=== PATIENT | male | born 1985 | race Caucasian/White ===

== ENCOUNTER 2017-03-25 21:34 | Emergency (ER) | payer BC, MEDICAID ==
[2017-03-25] MEDS ORDERED: Lidocaine 1% 30 ML SDV INJECT ONE (21:48)
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
[2017-03-25] MEDS ORDERED: Diphtheria,Pertussis(Acell),Tetanus Vaccine 0.5 ML SDV IM ONE (22:01)
[2017-03-25 22:43] VITALS: BP 144/80
== END 2017-03-25 22:47 | disposition home or self-care (01) ==
LOC: DL.ED 21:34
DX: S01.511A Laceration without foreign body of lip, initial encounter (principal); S00.83XA Contusion of other part of head, initial encounter; M25.512 Pain in left shoulder; F17.210 Nicotine dependence, cigarettes, uncomplicated; Z23 Encounter for immunization; Z88.1 Allergy status to other antibiotic agents; Y04.0XXA Assault by unarmed brawl or fight, initial encounter
CPT/HCPCS: 12011; 73030-LT; 90471; 90715; 99283

== ENCOUNTER 2018-12-27 21:49 | Emergency (ER) | payer BC ==
[2018-12-27 22:08] VITALS: BP 136/90
[2018-12-27] MEDS ORDERED: Sodium Chloride 0.9% 10 ML Syringe FLUSH PRN (22:09)
[2018-12-27 22:38] LABS: ANION GAP 13.2; CHLORIDE,CL 105 mmol/L (101-111); SODIUM,NA 137 mmol/L (135-145)
[2018-12-27] MEDS ORDERED: Sodium Chloride 0.9% 1,000 ML IV ONE (22:44)
[2018-12-27] MEDS ORDERED: Lactated Ringers 1,000 ML IV ONE (23:29)
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
== END 2018-12-28 00:17 | disposition home or self-care (01) ==
LOC: DL.ED 21:49
DX: K52.9 Noninfective gastroenteritis and colitis, unspecified (principal); E86.0 Dehydration; F17.210 Nicotine dependence, cigarettes, uncomplicated; Z98.890 Other specified postprocedural states; Z88.8 Allergy status to other drugs, medicaments and biological substances
CPT/HCPCS: 36415; 80053; 85025; 96360; 99283; J7030; J7120

== ENCOUNTER 2019-12-02 12:40 | Observation (INO) | payer OTHER ==
[2019-12-02] MEDS ORDERED: Sodium Chloride 0.9% 10 ML Syringe FLUSH PRN (12:54)
[2019-12-02] MEDS ORDERED: Lactated Ringers 1,000 ML IV ONE (12:55)
--- NOTE | 2019-12-02 13:04 | EDM.PDOC ---
ED HPI GENERAL MEDICAL PROBLEM - General Chief Complaint: Exposure to Heat or Cold Stated Complaint: UNKNOWN Time Seen by Provider: 12/02/19 12:55 Source of Information: Reports: Patient, EMS, Old Records, RN, RN Notes Reviewed History Limitations: Reports: No Limitations - History of Present Illness INITIAL COMMENTS - FREE TEXT/NARRATIVE: Pt [facility] with c/o being cold from being outside all night , with a bare right foot (lost his shoe) and laid on the cold ground for hours ( overnight temperatures in high 20's F. Pt states his feet and toes are painful and feel as if his has vera bite. He admits to relapsing to Methamphetamine use about 4 days ago after eight months of being clean and sober. Pt admits to both meth and marijuana use. He states that he was outside on the run from police all night. However, the police in that area report that they did not have any such abbie, and in fact were unaware of the pt's situation. The pt gives a detailed story of the events of the last 2 days, but it appears that much of what he reports may be related more to Methamphetamine related hallucinations that to reality. Onset: Unknown/Unsure Onset Date: 12/01/19 Duration: Constant Location: Reports: Lower Extremity, Left, Lower Extremity, Right, Generalized Quality: Reports: Ache Severity: Moderate Improves with: Reports: Heat Therapy Worsens with: Reports: None Context: Reports: Other (Cold exposure, substance abuse.) Associated Symptoms: Reports: No Other Symptoms Bilateral Leg Pain Score (Numeric/FACES): 8 - Related Data Allergies Allergy/AdvReac Type Severity Reaction Status Date / Time doxycycline Allergy Unknown Cannot Verified 12/02/19 12:53 Remember Home Meds: Home Meds Ibuprofen [Ibuprofen Ib] 800 mg PO ASDIRECTED PRN 05/04/18 [History] Past Medical History - Past Health History Medical/Surgical History: Denies Medical/Surgical History HEENT History: Reports: Other (See Below) Other HEENT History: dental problems Cardiovascular History: Reports: None Respiratory History: Reports: None Gastrointestinal History: Reports: None Genitourinary History: Reports: None Musculoskeletal History: Reports: None Other Musculoskeletal History: hands fx Neurological History: Reports: None Psychiatric History: Reports: Addiction Endocrine/Metabolic History: Reports: None Hematologic History: Reports: None Immunologic History: Reports: None Oncologic (Cancer) History: Reports: None Dermatologic History: Reports: None - Infectious Disease History Infectious Disease History: Reports: MRSA - Past Surgical History HEENT Surgical History: Reports: Adenoidectomy, Eye Surgery Cardiovascular Surgical History: Reports: None Respiratory Surgical History: Reports: None GI Surgical History: Reports: None Male Surgical History: Reports: None Endocrine Surgical History: Reports: None Neurological Surgical History: Reports: None Musculoskeletal Surgical History: Reports: None Oncologic Surgical History: Reports: None Social & Family History - Family History Family Medical History: Noncontributory - Tobacco Use Smoking Status *Q: Heavy Tobacco Smoker Years of Tobacco use: 22 Packs/Tins Daily: 1 - Caffeine Use Caffeine Use: Reports: Coffee Other Caffeine Use: 2 energy drinks/ day and 2 cups coffee /day - Recreational Drug Use Recreational Drug Use: Yes Drug Use in Last 12 Months: Yes Recreational Drug Type: Reports: Marijuana/Hashish, Methamphetamine - Living Situation & Occupation Living situation: Reports: Occupation: Employed ED ROS GENERAL - Review of Systems Review Of Systems: Comprehensive ROS is negative, except as noted in HPI. ED EXAM, GENERAL - Physical Exam Exam: See Below Exam Limited By: No Limitations General Appearance: Alert, WD/WN, No Apparent Distress, Other (Unkept appearance ) Eye Exam: Bilateral Eye: EOMI, Nystagmus (Lateral gaze), PERRL Ears: Normal External Exam, Hearing Grossly Normal Nose: Normal Inspection, Normal Mucosa, No Blood Throat/Mouth: Normal Voice, No Airway Compromise, Other (Dry oral mucosa. Chronic dental decay.) Head: Atraumatic, Normocephalic Neck: Normal Inspection, Supple, Non-Tender, Full Range of Motion. No: Lymphadenopathy (L), Lymphadenopathy (R) Respiratory/Chest: No Respiratory Distress, Lungs Clear, Normal Breath Sounds, No Accessory Muscle Use, Chest Non-Tender Cardiovascular: Normal Peripheral Pulses, Regular Rate, Rhythm GI/Abdominal: Normal Bowel Sounds, Soft, Non-Tender, No Organomegaly, No Distention, No Abnormal Bruit, No Mass Back Exam: Normal Inspection, Full Range of Motion. No: CVA Tenderness (L), CVA Tenderness (R) Extremities: Normal Range of Motion, No Pedal Edema, Normal Capillary Refill ( at distal fingers), Slow Capillary Refill (at distal toes), Other (Laceration at plantar right 3rd toe overlying the MTPJ, not repaired due to vera bite of the area.). No: Joint Swelling Neurological: Alert, Oriented, CN II-XII Intact, Normal Cognition, No Motor/ Sensory Deficits Psychiatric: Normal Mood Skin Exam: Dry, No Rash, Cool (Feet/toes/lower legs), Other (Skin of left foot is red, and tender after passive dry warming, no bulla or blister, skin is intact. Right foot is more tender than the left, with 7cm of purplish discoloration from the 5th toe along the later side of the foot. Right toe pads 1-5 also with purplish discoloration, and a band of purlpe skin across the plantar forefoot 15cm x 4cm. No blistering, white/sprague skin, sloughing, or bulla to the right foot. ). No: Cyanosis, Ecchymosis, Erythema, Jaundice, Petechiae Course - Vital Signs Last Recorded V/S: Last Vital Signs Temp 98.5 F 12/02/19 12:54 Pulse 98 12/02/19 12:54 Resp 16 12/02/19 12:54 BP 114/67 12/02/19 12:54 Pulse Ox 100 12/02/19 12:54 - Orders/Labs/Meds Orders: Active Orders 24 hr Category Date Time Status Blood Glucose Check, Bedside [RC] ONETIME Care 12/02/19 12:54 Active Blood Glucose Check, Bedside [RC] ONETIME Care 12/02/19 14:48 Ordered Peripheral IV Care [RC] . DIRECTED Care 12/02/19 12:54 Active Dextrose 5%-0.45% NaCl [Dextrose 5%-1/2 NS] 1,000 ml Med 12/02/19 14:15 Active IV ASDIRECTED Sodium Chloride 0.9% [Saline Flush] Med 12/02/19 12:54 Active 10 ml FLUSH ASDIRECTED PRN Peripheral IV Insertion Adult [OM.PC] Stat Oth 12/02/19 12:54 Ordered Medication Orders Dextrose/Sodium Chloride (Dextrose 5%-1/2 Ns) 1,000 mls @ 150 mls/hr IV ASDIRECTED [place] Last Admin: 12/02/19 14:14 Dose: 150 mls/hr Sodium Chloride (Saline Flush) 10 ml FLUSH ASDIRECTED PRN PRN Reason: Keep Vein Open Last Admin: 12/02/19 13:03 Dose: 10 ml Labs: Laboratory Tests 12/02/19 12/02/19 12/02/19 Range/Units 12:55 12:55 12:55 WBC 15.2 H (5.0-10.0) 10^3/uL RBC 5.56 (4.6-6.2) 10^6/uL Hgb 16.9 D (14.0-18.0) g/dL Hct 47.7 (40.0-54.0) % MCV 85.8 D (80-100) fL MCH 30.4 (27.0-34.0) pg MCHC 35.4 H (33.0-35.0) g/dL Plt Count 284 (150-450) 10^3/uL Neut % (Auto) 75.4 H (42.2-75.2) % Lymph % (Auto) 14.8 L (20.5-50.1) % [place] % (Auto) 9.4 H (2-8) % Eos % (Auto) 0.1 L (1.0-3.0) % Baso % (Auto) 0.3 (0.0-1.0) % Sodium 139 (136-145) mmol/L Potassium 4.0 (3.5-5.1) mmol/L Chloride 99 (98-107) mmol/L Carbon Dioxide 21 (21-32) mmol/L Anion Gap 23.0 H (7-13) mEq/L BUN 38 H (7-18) mg/dL Creatinine 1.24 (0.70-1.30) mg/dL Est Cr Clr Drug Dosing 82.36 mL/min Estimated GFR (MDRD) > 60 BUN/Creatinine Ratio 30.6 (No establ ref range) Glucose 73 L (74-99) mg/dL POC Glucose (70-105) mg/dl Lactic Acid 1.0 (0.4-2.0) mmol/L Calcium 9.1 (8.5-10.1) mg/dL Magnesium 2.2 (1.8-2.4) mg/dL Total Bilirubin 1.6 H (0.2-1.0) mg/dL AST 146 H (15-37) U/L ALT 71 H (16-63) U/L Alkaline Phosphatase 106 (46-116) U/L Creatine Kinase > 1000 H (39-308) U/L C-Reactive Protein 2.7 H (0.0-0.9) mg/dL Total Protein 8.1 (6.4-8.2) g/dL Albumin 4.7 (3.4-5.0) g/dL Globulin 3.4 Albumin/Globulin Ratio 1.4 Urine Color (YELLOW) Urine Appearance (CLEAR) Urine pH (5.0-9.0) Ur Specific [place] (1.005-1.030) Urine Protein (NEGATIVE) Urine Glucose (UA) (NEGATIVE) Urine Ketones (NEGATIVE) Urine Occult Blood (NEGATIVE) Urine Nitrite (NEGATIVE) Urine Bilirubin (NEGATIVE) Urine Urobilinogen (0.2-1.0) mg/dL Ur Leukocyte Esterase (NEGATIVE) U Hyaline Cast (Auto) Urine RBC /HPF Urine WBC (0-5/HPF) /HPF Ur Epithelial Cells (NOT SEEN) /HPF Amorphous Sediment (NOT SEEN) /HPF Urine Bacteria (0-FEW/HPF) /HPF Fine Granular Casts (NOT SEEN) /LPF Urine Mucus (NOT SEEN) /LPF Urine Opiates Screen (NEGATIVE) Ur Oxycodone Screen (NEGATIVE) Urine Methadone Screen (NEGATIVE) Ur Barbiturates Screen (NEGATIVE) U Tricyclic Antidepress (NEGATIVE) Ur Phencyclidine Scrn (NEGATIVE) Ur Amphetamine Screen (NEGATIVE) U Methamphetamines Scrn (NEGATIVE) Urine MDMA Screen (NEGATIVE) U Benzodiazepines Scrn (NEGATIVE) Urine Cocaine Screen (NEGATIVE) U Marijuana (THC) Screen (NEGATIVE) Ethyl Alcohol < 3 (0) mg/dL 12/02/19 12/02/19 12/02/19 Range/Units 13:03 14:04 14:04 WBC (5.0-10.0) 10^3/uL RBC (4.6-6.2) 10^6/uL Hgb (14.0-18.0) g/dL Hct (40.0-54.0) % MCV (80-100) fL MCH (27.0-34.0) pg MCHC (33.0-35.0) g/dL Plt Count (150-450) 10^3/uL Neut % (Auto) (42.2-75.2) % Lymph % (Auto) (20.5-50.1) % [place] % (Auto) (2-8) % Eos % (Auto) (1.0-3.0) % Baso % (Auto) (0.0-1.0) % Sodium (136-145) mmol/L Potassium (3.5-5.1) mmol/L Chloride (98-107) mmol/L Carbon Dioxide (21-32) mmol/L Anion Gap (7-13) mEq/L BUN (7-18) mg/dL Creatinine (0.70-1.30) mg/dL Est Cr Clr Drug Dosing mL/min Estimated GFR (MDRD) BUN/Creatinine Ratio (No establ ref range) Glucose (74-99) mg/dL POC Glucose 64 L (70-105) mg/dl Lactic Acid (0.4-2.0) mmol/L Calcium (8.5-10.1) mg/dL Magnesium (1.8-2.4) mg/dL Total Bilirubin (0.2-1.0) mg/dL AST (15-37) U/L ALT (16-63) U/L Alkaline Phosphatase (46-116) U/L Creatine Kinase (39-308) U/L C-Reactive Protein (0.0-0.9) mg/dL Total Protein (6.4-8.2) g/dL Albumin (3.4-5.0) g/dL Globulin Albumin/Globulin Ratio Urine Color Dark yellow (YELLOW) Urine Appearance Slightly cloudy (CLEAR) Urine pH 5.5 (5.0-9.0) Ur Specific [place] >= 1.030 (1.005-1.030) Urine Protein 100 H (NEGATIVE) Urine Glucose (UA) Negative (NEGATIVE) Urine Ketones >=160 H (NEGATIVE) Urine Occult Blood Moderate H (NEGATIVE) Urine Nitrite Negative (NEGATIVE) Urine Bilirubin Small H (NEGATIVE) Urine Urobilinogen 0.2 (0.2-1.0) mg/dL Ur Leukocyte Esterase Negative (NEGATIVE) U Hyaline Cast (Auto) Few Urine RBC 0-5 /HPF Urine WBC 0-5 (0-5/HPF) /HPF Ur Epithelial Cells Rare (NOT SEEN) /HPF Amorphous Sediment Few (NOT SEEN) /HPF Urine Bacteria Few (0-FEW/HPF) /HPF Fine Granular Casts Few H (NOT SEEN) /LPF Urine Mucus Few H (NOT SEEN) /LPF Urine Opiates Screen Negative (NEGATIVE) Ur Oxycodone Screen Negative (NEGATIVE) Urine Methadone Screen Negative (NEGATIVE) Ur Barbiturates Screen Negative (NEGATIVE) U Tricyclic Antidepress Negative (NEGATIVE) Ur Phencyclidine Scrn Negative (NEGATIVE) Ur Amphetamine Screen Positive H (NEGATIVE) U Methamphetamines Scrn Positive H (NEGATIVE) Urine MDMA Screen Positive H (NEGATIVE) U Benzodiazepines Scrn Negative (NEGATIVE) Urine Cocaine Screen Negative (NEGATIVE) U Marijuana (THC) Screen Positive H (NEGATIVE) Ethyl Alcohol (0) mg/dL CPK reported >7000 [address]. Meds: Medications Generic Name Dose Route Start Last Admin Trade Name Freq PRN Reason Stop Dose Admin Dextrose/Sodium Chloride 1,000 mls @ 150 mls/hr 12/02/19 14:15 12/02/19 14:14 Dextrose 5%-1/2 Ns IV 150 mls/hr ASDIRECTED [place] Administration Sodium Chloride 10 ml 12/02/19 12:54 12/02/19 13:03 Saline Flush FLUSH 10 ml ASDIRECTED PRN Administration Keep Vein Open Discontinued Medications Generic Name Dose Route Start Last Admin Trade Name Freq PRN Reason Stop Dose Admin Fentanyl 50 mcg 12/02/19 14:04 12/02/19 14:16 Sublimaze IVPUSH 12/02/19 14:05 50 mcg ONETIME ONE Administration Lactated Ringer's 1,000 mls @ 999 mls/hr 12/02/19 12:55 12/02/19 13:03 Ringers, Lactated IV 12/02/19 13:55 999 mls/hr .BOLUS ONE Administration Ketorolac Tromethamine 30 mg 12/02/19 14:04 12/02/19 14:15 Toradol IVPUSH 12/02/19 14:05 30 mg ONETIME ONE Administration Ondansetron HCl 4 mg 12/02/19 14:05 12/02/19 14:15 Zofran IV 12/02/19 14:06 4 mg ONETIME ONE Administration - Re-Assessments/Exams Free Text/Narrative Re-Assessment/Exam: 12/02/19 15:01 Dr. Mariella Blake (public health informatician) consulted for frostbite, and agrees to consult if pt is admitted. Departure - Departure Time of Disposition: 14:58 (pt admitted to Dr. KwakDr. Mariella gambino to consult for podiatry.) Disposition: Refer to Observation Condition: Fair Clinical Impression: Dehydration, Methamphetamine abuse, MDMA abuse, Marijuana abuse Rhabdomyolysis Qualifiers: Rhabdomyolysis type: non-traumatic Qualified Code(s): M62.82 - Rhabdomyolysis Frostbite of feet, bilateral Qualifiers: Encounter type: initial encounter Qualified Code(s): T33.821A - Superficial frostbite of right foot, initial encounter; T33.822A - Superficial frostbite of left foot, initial encounter Hypothermia Qualifiers: Encounter type: initial encounter Qualified Code(s): T68.XXXA - Hypothermia, initial encounter - Discharge Information *PRESCRIPTION DRUG MONITORING PROGRAM REVIEWED*: No *COPY OF PRESCRIPTION DRUG MONITORING REPORT IN PATIENT ALTAGRACIA: No Forms: ED Department Discharge Sepsis Event Note - Evaluation Sepsis Screening Result: No Definite Risk - Focused Exam Vital Signs: Vital Signs Temp Pulse Resp BP Pulse Ox 12/02/19 12:54 98.5 F 98 16 114/67 100 Date Exam was Performed: 12/02/19 Time Exam was Performed: 14:56 - My Orders Last 24 Hours: My Active Orders 12/02/19 12:54 Blood Glucose Check, Bedside [RC] ONETIME Peripheral IV Care [RC] . DIRECTED Sodium Chloride 0.9% [Saline Flush] 10 ml FLUSH ASDIRECTED PRN Peripheral IV Insertion Adult [OM.PC] Stat 12/02/19 14:15 Dextrose 5%-0.45% NaCl [Dextrose 5%-1/2 NS] 1,000 ml IV ASDIRECTED 12/02/19 14:48 Blood Glucose Check, Bedside [RC] ONETIME - Assessment/Plan Last 24 Hours: My Active Orders 12/02/19 12:54 Blood Glucose Check, Bedside [RC] ONETIME Peripheral IV Care [RC] . DIRECTED Sodium Chloride 0.9% [Saline Flush] 10 ml FLUSH ASDIRECTED PRN Peripheral IV Insertion Adult [OM.PC] Stat 12/02/19 14:15 Dextrose 5%-0.45% NaCl [Dextrose 5%-1/2 NS] 1,000 ml IV ASDIRECTED 12/02/19 14:48 Blood Glucose Check, Bedside [RC] ONETIME
[2019-12-02 13:40] LABS: CHLORIDE,CL 99 mmol/L (98-107); SODIUM,NA 139 mmol/L (136-145)
[2019-12-02] MEDS ORDERED: Ketorolac 30 MG/ML SDV IVPUSH ONE (14:04)
[2019-12-02] MEDS ORDERED: fentaNYL 100 MCG/2 ML SDV IVPUSH ONE (14:04)
[2019-12-02] MEDS ORDERED: Ondansetron 4 MG/2 ML SDV IV ONE (14:05)
[2019-12-02] MEDS ORDERED: Dextrose 5%-0.45% NaCl 1,000 ML IV SCH (14:15)
[2019-12-02] MEDS ORDERED: Docusate Sodium 100 MG Cap PO PRN (15:27)
[2019-12-02] MEDS ORDERED: Magnesium Hydroxide 400 MG/5 ML Susp 30 ML Cup PO PRN (15:27)
[2019-12-02] MEDS ORDERED: Ondansetron 4 MG Tab.DIS PO PRN (15:27)
[2019-12-02] MEDS ORDERED: Acetaminophen 325 MG Tab PO PRN (15:27)
--- NOTE | 2019-12-02 15:56 | PCM.HP ---
H&P History of Present Illness - General Date of Service: 12/02/19 Admit Problem/Dx: Admission Diagnosis/Problem Admission Diagnosis/Problem Frostbite/Rhabdomyolysis Source of Information: Patient History Limitations: Reports: No Limitations - History of Present Illness Initial Comments - Free Text/Narative: Shady is34 y/o M with PMH of substance abuse. Patient's uses methamphetamine but apparently has been in remission for the past 8 months. He relapsed 3 days ago. Patient was brought to the ED for evaluation of hallucination and frostbite to the left toe. He was brought to the ED via EMS complaining of feeling cold. Patient said he was lying outside on the ground all night for about 12 hours. He lost his shoes and he laid down on the cold ground for about 12 hours. According to patient he was chased out of his home by the police and ended up somewhat dehydrated and could not help himself up. This morning he was having pain all over his body and feeling cold. So he crawled about [address] where he could seek help. EMS was activated and he was brought to the ED. Patient's history appears to be inconsistent. He denies passing out. He has no chest pain, shortness of breath, fever, chills. No headaches. He only reports pain all over the body and feeling weak and tired and dehydrated. He admits using methamphetamine and marijuana. He reports pain and purple discoloration to the right foot. In the ED vitals were unremarkable. Significant labs; WBC 15 K, creatinine greater than thousand. Utox positive for marijuana and methamphetamine. Other labs essentially unremarkable. He was started on IV fluids. As per the ED vitals, Dr. Rahman he consulted supervisor agricultural education who promised to see patient today. Onset of Symptoms: Reports: Gradual Duration of Symptoms: Reports: Hour(s):, Day(s): Location: Reports: Lower Extremity, Right, Generalized Quality: Reports: Ache Severity: Moderate Improves with: Reports: None Worsens with: Reports: None Associated Symptoms: Reports: Weakness Bilateral Leg Pain Score (Numeric/FACES): 8 - Related Data Allergies/Adverse Reactions: Allergies Allergy/AdvReac Type Severity Reaction Status Date / Time doxycycline Allergy Unknown Cannot Verified 12/02/19 15:40 Remember Home Medications: Home Meds Ibuprofen [Ibuprofen Ib] 800 mg PO ASDIRECTED PRN 05/04/18 [History] Past Medical History - Past Health History Medical/Surgical History: Denies Medical/Surgical History HEENT History: Reports: Other (See Below) Other HEENT History: dental problems Cardiovascular History: Reports: None Respiratory History: Reports: None Gastrointestinal History: Reports: None Genitourinary History: Reports: None Musculoskeletal History: Reports: None Other Musculoskeletal History: hands fx Neurological History: Reports: None Psychiatric History: Reports: Addiction Endocrine/Metabolic History: Reports: None Hematologic History: Reports: None Immunologic History: Reports: None Oncologic (Cancer) History: Reports: None Dermatologic History: Reports: None - Infectious Disease History Infectious Disease History: Reports: MRSA - Past Surgical History HEENT Surgical History: Reports: Adenoidectomy, Eye Surgery Cardiovascular Surgical History: Reports: None Respiratory Surgical History: Reports: None GI Surgical History: Reports: None Male Surgical History: Reports: None Endocrine Surgical History: Reports: None Neurological Surgical History: Reports: None Musculoskeletal Surgical History: Reports: None Oncologic Surgical History: Reports: None Social & Family History - Family History Family Medical History: Noncontributory - Tobacco Use Smoking Status *Q: Heavy Tobacco Smoker Years of Tobacco use: 22 Packs/Tins Daily: 1 - Caffeine Use Caffeine Use: Reports: Coffee Other Caffeine Use: 2 energy drinks/ day and 2 cups coffee /day - Recreational Drug Use Recreational Drug Use: Yes Drug Use in Last 12 Months: Yes Recreational Drug Type: Reports: Marijuana/Hashish, Methamphetamine - Living Situation & Occupation Living situation: Reports: Occupation: Employed H&P Review of Systems - Review of Systems: Review Of Systems: See Below General: Reports: Weakness HEENT: Reports: No Symptoms Pulmonary: Reports: No Symptoms Cardiovascular: Reports: No Symptoms Gastrointestinal: Reports: No Symptoms Genitourinary: Reports: No Symptoms Musculoskeletal: Reports: Muscle Pain Skin: Reports: No Symptoms Psychiatric: Reports: No Symptoms Neurological: Reports: No Symptoms Hematologic/Lymphatic: Reports: No Symptoms Immunologic: Reports: No Symptoms (right foot pain and discoloration) Exam - Exam Exam: See Below - Vital Signs Vital Signs: Last Vital Signs Temp 98.5 F 12/02/19 12:54 Pulse 98 12/02/19 12:54 Resp 16 12/02/19 12:54 BP 114/67 12/02/19 12:54 Pulse Ox 100 12/02/19 12:54 Weight: 209 lb 3 oz - Exam General: Alert, Oriented, 4 HEENT: PERRLA, Hearing Intact, Mucosa Moist & Robbins, Nares Patent, Normal Nasal Septum, Posterior Pharynx Clear, Conjunctiva Clear, EOMI, EACs Clear, TMs Clear Neck: Supple, Trachea Midline, 2 Lungs: Clear to Auscultation, Normal Respiratory Effort Cardiovascular: Regular Rate, Regular Rhythm GI/Abdominal Exam: Normal Bowel Sounds, Soft, Non-Tender, No Organomegaly, No Distention, No Abnormal Bruit, No Mass, Pelvis Stable (Male) Exam: No Hernia, Normal Inspection, Normal Prostate, Circumcised Rectal (Males) Exam: Normal Exam, Normal Rectal Tone, Prostate Normal Back Exam: Normal Inspection, Full Range of Motion, NT Extremities: Normal Range of Motion, No Pedal Edema, Normal Capillary Refill, Other (Pulple discoloration to right toes) Skin: Warm, Dry, Intact Neurological: Cranial Nerves Intact, Reflexes Equal Bilateral Neuro Extensive - Mental Status: Alert, Oriented x3, Normal Mood/Affect, Normal Cognition Neuro Extensive - Motor, Sensory, Reflexes: CN II-XII Intact, Normal Gait, Normal Reflexes Psychiatric: Alert, Normal Affect, Normal Mood - Patient Data Lab Results Last 24 hrs: Laboratory Results - last 24 hr 12/02/19 12/02/19 12/02/19 Range/Units 12:55 12:55 12:55 WBC 15.2 H (5.0-10.0) 10^3/uL RBC 5.56 (4.6-6.2) 10^6/uL Hgb 16.9 D (14.0-18.0) g/dL Hct 47.7 (40.0-54.0) % MCV 85.8 D (80-100) fL MCH 30.4 (27.0-34.0) pg MCHC 35.4 H (33.0-35.0) g/dL Plt Count 284 (150-450) 10^3/uL Neut % (Auto) 75.4 H (42.2-75.2) % Lymph % (Auto) 14.8 L (20.5-50.1) % [place] % (Auto) 9.4 H (2-8) % Eos % (Auto) 0.1 L (1.0-3.0) % Baso % (Auto) 0.3 (0.0-1.0) % Sodium 139 (136-145) mmol/L Potassium 4.0 (3.5-5.1) mmol/L Chloride 99 (98-107) mmol/L Carbon Dioxide 21 (21-32) mmol/L Anion Gap 23.0 H (7-13) mEq/L BUN 38 H (7-18) mg/dL Creatinine 1.24 (0.70-1.30) mg/dL Est Cr Clr Drug Dosing 82.36 mL/min Estimated GFR (MDRD) > 60 BUN/Creatinine Ratio 30.6 (No establ ref range) Glucose 73 L (74-99) mg/dL POC Glucose (70-105) mg/dl Lactic Acid 1.0 (0.4-2.0) mmol/L Calcium 9.1 (8.5-10.1) mg/dL Magnesium 2.2 (1.8-2.4) mg/dL Total Bilirubin 1.6 H (0.2-1.0) mg/dL AST 146 H (15-37) U/L ALT 71 H (16-63) U/L Alkaline Phosphatase 106 (46-116) U/L Creatine Kinase > 1000 H (39-308) U/L C-Reactive Protein 2.7 H (0.0-0.9) mg/dL Total Protein 8.1 (6.4-8.2) g/dL Albumin 4.7 (3.4-5.0) g/dL Globulin 3.4 Albumin/Globulin Ratio 1.4 Urine Color (YELLOW) Urine Appearance (CLEAR) Urine pH (5.0-9.0) Ur Specific [place] (1.005-1.030) Urine Protein (NEGATIVE) Urine Glucose (UA) (NEGATIVE) Urine Ketones (NEGATIVE) Urine Occult Blood (NEGATIVE) Urine Nitrite (NEGATIVE) Urine Bilirubin (NEGATIVE) Urine Urobilinogen (0.2-1.0) mg/dL Ur Leukocyte Esterase (NEGATIVE) U Hyaline Cast (Auto) Urine RBC /HPF Urine WBC (0-5/HPF) /HPF Ur Epithelial Cells (NOT SEEN) /HPF Amorphous Sediment (NOT SEEN) /HPF Urine Bacteria (0-FEW/HPF) /HPF Fine Granular Casts (NOT SEEN) /LPF Urine Mucus (NOT SEEN) /LPF Urine Opiates Screen (NEGATIVE) Ur Oxycodone Screen (NEGATIVE) Urine Methadone Screen (NEGATIVE) Ur Barbiturates Screen (NEGATIVE) U Tricyclic Antidepress (NEGATIVE) Ur Phencyclidine Scrn (NEGATIVE) Ur Amphetamine Screen (NEGATIVE) U Methamphetamines Scrn (NEGATIVE) Urine MDMA Screen (NEGATIVE) U Benzodiazepines Scrn (NEGATIVE) Urine Cocaine Screen (NEGATIVE) U Marijuana (THC) Screen (NEGATIVE) Ethyl Alcohol < 3 (0) mg/dL 12/02/19 12/02/19 12/02/19 Range/Units 13:03 14:04 14:04 WBC (5.0-10.0) 10^3/uL RBC (4.6-6.2) 10^6/uL Hgb (14.0-18.0) g/dL Hct (40.0-54.0) % MCV (80-100) fL MCH (27.0-34.0) pg MCHC (33.0-35.0) g/dL Plt Count (150-450) 10^3/uL Neut % (Auto) (42.2-75.2) % Lymph % (Auto) (20.5-50.1) % [place] % (Auto) (2-8) % Eos % (Auto) (1.0-3.0) % Baso % (Auto) (0.0-1.0) % Sodium (136-145) mmol/L Potassium (3.5-5.1) mmol/L Chloride (98-107) mmol/L Carbon Dioxide (21-32) mmol/L Anion Gap (7-13) mEq/L BUN (7-18) mg/dL Creatinine (0.70-1.30) mg/dL Est Cr Clr Drug Dosing mL/min Estimated GFR (MDRD) BUN/Creatinine Ratio (No establ ref range) Glucose (74-99) mg/dL POC Glucose 64 L (70-105) mg/dl Lactic Acid (0.4-2.0) mmol/L Calcium (8.5-10.1) mg/dL Magnesium (1.8-2.4) mg/dL Total Bilirubin (0.2-1.0) mg/dL AST (15-37) U/L ALT (16-63) U/L Alkaline Phosphatase (46-116) U/L Creatine Kinase (39-308) U/L C-Reactive Protein (0.0-0.9) mg/dL Total Protein (6.4-8.2) g/dL Albumin (3.4-5.0) g/dL Globulin Albumin/Globulin Ratio Urine Color Dark yellow (YELLOW) Urine Appearance Slightly cloudy (CLEAR) Urine pH 5.5 (5.0-9.0) Ur Specific [place] >= 1.030 (1.005-1.030) Urine Protein 100 H (NEGATIVE) Urine Glucose (UA) Negative (NEGATIVE) Urine Ketones >=160 H (NEGATIVE) Urine Occult Blood Moderate H (NEGATIVE) Urine Nitrite Negative (NEGATIVE) Urine Bilirubin Small H (NEGATIVE) Urine Urobilinogen 0.2 (0.2-1.0) mg/dL Ur Leukocyte Esterase Negative (NEGATIVE) U Hyaline Cast (Auto) Few Urine RBC 0-5 /HPF Urine WBC 0-5 (0-5/HPF) /HPF Ur Epithelial Cells Rare (NOT SEEN) /HPF Amorphous Sediment Few (NOT SEEN) /HPF Urine Bacteria Few (0-FEW/HPF) /HPF Fine Granular Casts Few H (NOT SEEN) /LPF Urine Mucus Few H (NOT SEEN) /LPF Urine Opiates Screen Negative (NEGATIVE) Ur Oxycodone Screen Negative (NEGATIVE) Urine Methadone Screen Negative (NEGATIVE) Ur Barbiturates Screen Negative (NEGATIVE) U Tricyclic Antidepress Negative (NEGATIVE) Ur Phencyclidine Scrn Negative (NEGATIVE) Ur Amphetamine Screen Positive H (NEGATIVE) U Methamphetamines Scrn Positive H (NEGATIVE) Urine MDMA Screen Positive H (NEGATIVE) U Benzodiazepines Scrn Negative (NEGATIVE) Urine Cocaine Screen Negative (NEGATIVE) U Marijuana (THC) Screen Positive H (NEGATIVE) Ethyl Alcohol (0) mg/dL Result Diagrams: 12/02/19 12:55 12/02/19 12:55 - Problem List (1) Dehydration SNOMED Code(s): 66944027 ICD Code: E86.0 - DEHYDRATION Status: Acute Current Visit: Yes (2) Marijuana abuse SNOMED Code(s): 77132470 ICD Code: F12.10 - CANNABIS ABUSE, UNCOMPLICATED Status: Acute Current Visit: No (3) Methamphetamine abuse SNOMED Code(s): 160639216 ICD Code: F15.10 - OTHER STIMULANT ABUSE, UNCOMPLICATED Status: Acute Current Visit: No (4) Rhabdomyolysis SNOMED Code(s): 537625791 ICD Code: M62.82 - RHABDOMYOLYSIS Status: Acute Current Visit: No Qualifiers: Rhabdomyolysis type: non-traumatic Qualified Code(s): M62.82 - Rhabdomyolysis (5) Leukocytosis SNOMED Code(s): 261872614, 861603153 ICD Code: D72.829 - ELEVATED WHITE BLOOD CELL COUNT, UNSPECIFIED Status: Acute Current Visit: Yes (6) Abnormal liver function SNOMED Code(s): 61841084 ICD Code: R94.5 - ABNORMAL RESULTS OF LIVER FUNCTION STUDIES Status: Acute Current Visit: Yes (7) Sepsis SNOMED Code(s): 48464814 ICD Code: A41.9 - SEPSIS, UNSPECIFIED ORGANISM Status: Acute Current Visit: Yes Problem List Initiated/Reviewed/Updated: Yes Orders Last 24hrs: Active Orders 24 hr Category Date Time Status Admission Diagnosis [ADT] Routine ADT 12/02/19 14:58 Ordered Patient Status [ADT] Routine ADT 12/02/19 14:58 Active Ambulate [RC] ASDIRECTED Care 12/02/19 15:27 Active Blood Glucose Check, Bedside [RC] ONETIME Care 12/02/19 12:54 Active Blood Glucose Check, Bedside [RC] ONETIME Care 12/02/19 14:48 Active Height and Weight [RC] DAILY Care 12/02/19 15:27 Active Intake and Output [RC] QSHIFT Care 12/02/19 15:27 Active Oxygen Therapy [RC] PRN Care 12/02/19 15:27 Active Peripheral IV Care [RC] . DIRECTED Care 12/02/19 12:54 Active VTE/DVT Education [RC] PER UNIT ROUTINE Care 12/02/19 15:27 Active Vital Signs [RC] Q4H Care 12/02/19 15:27 Active Regular Diet [DIET] Diet 12/02/19 Dinner Active BASIC METABOLIC PANEL,BMP [CHEM] DAILY Lab 12/03/19 07:00 Ordered BASIC METABOLIC PANEL,BMP [CHEM] DAILY Lab 12/04/19 07:00 Ordered BASIC METABOLIC PANEL,BMP [CHEM] DAILY Lab 12/05/19 07:00 Ordered BASIC METABOLIC PANEL,BMP [CHEM] DAILY Lab 12/06/19 07:00 Ordered CBC W/O DIFF,HEMOGRAM [HEME] DAILY Lab 12/03/19 07:00 Ordered CBC W/O DIFF,HEMOGRAM [HEME] DAILY Lab 12/04/19 07:00 Ordered CBC W/O DIFF,HEMOGRAM [HEME] DAILY Lab 12/05/19 07:00 Ordered CBC W/O DIFF,HEMOGRAM [HEME] DAILY Lab 12/06/19 07:00 Ordered CPK [CREATINE KINASE,CK] [CHEM] DAILY Lab 12/03/19 07:00 Ordered CPK [CREATINE KINASE,CK] [CHEM] DAILY Lab 12/04/19 07:00 Ordered CPK [CREATINE KINASE,CK] [CHEM] DAILY Lab 12/05/19 07:00 Ordered CPK [CREATINE KINASE,CK] [CHEM] DAILY Lab 12/06/19 07:00 Ordered MAGNESIUM [CHEM] Routine Lab 12/02/19 12:55 Received PHOSPHORUS [CHEM] DAILY Lab 12/03/19 07:00 Ordered PHOSPHORUS [CHEM] DAILY Lab 12/04/19 07:00 Ordered PHOSPHORUS [CHEM] DAILY Lab 12/05/19 07:00 Ordered PHOSPHORUS [CHEM] DAILY Lab 12/06/19 07:00 Ordered PHOSPHORUS [CHEM] Routine Lab 12/02/19 12:55 Received Acetaminophen [Tylenol] Med 12/02/19 15:27 Active 650 mg PO Q4H PRN Dextrose 5%-0.45% NaCl [Dextrose 5%-1/2 NS] 1,000 ml Med 12/02/19 14:15 Active IV ASDIRECTED Docusate Sodium [Colace] Med 12/02/19 15:27 Active 100 mg PO BID PRN Enoxaparin [Lovenox] Med 12/03/19 09:00 Active 40 mg SUBCUT DAILY Magnesium Hydroxide [Milk of Magnesia] Med 12/02/19 15:27 Active 30 ml PO Q12H PRN Ondansetron [Zofran ODT] Med 12/02/19 15:27 Active 4 mg PO Q6H PRN Sodium Chloride 0.9% [Normal Saline] 1,000 ml Med 12/02/19 15:30 Active IV ASDIRECTED Sodium Chloride 0.9% [Saline Flush] Med 12/02/19 12:54 Active 10 ml FLUSH ASDIRECTED PRN Peripheral IV Insertion Adult [OM.PC] Stat Oth 12/02/19 12:54 Ordered Resuscitation Status Routine Resus Stat 12/02/19 15:27 Ordered Medication Orders Acetaminophen (Tylenol) 650 mg PO Q4H PRN PRN Reason: Pain (Mild 1-3)/fever Docusate Sodium (Colace) 100 mg PO BID PRN PRN Reason: Constipation Enoxaparin Sodium (Lovenox) 40 mg SUBCUT DAILY [facility] Dextrose/Sodium Chloride (Dextrose 5%-1/2 Ns) 1,000 mls @ 150 mls/hr IV ASDIRECTED [facility] Last Admin: 12/02/19 14:14 Dose: 150 mls/hr Sodium Chloride (Normal Saline) 1,000 mls @ 250 mls/hr IV ASDIRECTED [facility] Magnesium Hydroxide (Milk Of Magnesia) 30 ml PO Q12H PRN PRN Reason: Constipation Ondansetron HCl (Zofran Odt) 4 mg PO Q6H PRN PRN Reason: nausea, able to take PO Sodium Chloride (Saline Flush) 10 ml FLUSH ASDIRECTED PRN PRN Reason: Keep Vein Open Last Admin: 12/02/19 13:03 Dose: 10 ml Assessment/Plan Comment:: #Rhabdomyolysis -CK greater than 1000 -Admit to medical floor -Aggressive IV hydration. Normal saline at 250 mL/hr -Check phosphorus level, magnesium level -Daily CK, phosphorus #Dehydration -IV fluids #Right toes frostbite -Peripheral pulses intact -Podiatry is consulted #Probable sepsis -IVF -IV Zosyn -Blood cx #Anion gap metabolic acidosis likely due to starvation ketosis -IVF #Abnormal LFTs -Hepatitis profile -RURUST -Monitor LFts daily #Substance abuse(marijuana, methamphetamine) -U tox positive for marijuana and methamphetamine -Counseled to quit
[2019-12-02] MEDS ORDERED: LORazepam 2 MG/ML SDV IVPUSH PRN (16:42)
[2019-12-02] MEDS: Piperacillin/Tazobactam 3.375 GM in Sodium Chloride 0.9% 100 ML IV SCH (18:21)
[2019-12-02] MEDS: Sodium Chloride 0.9% 1,000 ML IV SCH ×2 (18:21→23:00)
[2019-12-02] MEDS ORDERED: Simethicone 80 MG Tab.Chew PO ONE (21:00)
[2019-12-03] MEDS: Piperacillin/Tazobactam 3.375 GM in Sodium Chloride 0.9% 100 ML IV SCH ×4 (01:23→18:07)
[2019-12-03] MEDS: Sodium Chloride 0.9% 1,000 ML IV SCH ×5 (03:33→23:00)
[2019-12-03 06:35] LABS: ANION GAP 14.8 mEq/L (7-13); CHLORIDE,CL 104 mmol/L (98-107); SODIUM,NA 141 mmol/L (136-145)
[2019-12-03] MEDS ORDERED: Simethicone 80 MG Tab.Chew PO ONE (09:00)
[2019-12-03] MEDS: Enoxaparin 40 MG/0.4 ML Syringe SUBCUT SCH (10:02)
--- NOTE | 2019-12-03 10:18 | PCM.PN ---
- General Info Date of Service: 12/03/19 Admission Dx/Problem (Free Text): Admission Diagnosis/Problem Admission Diagnosis/Problem Frostbite/Rhabdomyolysis Subjective Update: Shady is34 y/o M with PMH of substance abuse. Patient's uses methamphetamine but apparently has been in remission for the past 8 months. He relapsed 3 days ago. Patient was brought to the ED for evaluation of hallucination, body pains and frostbite to the left toe. He was admitted for rhabdomyolysis. Today he is doing ok. No acute event overnight. Ashish fever, chills. Pain to left toes better today. CK trended up. Creatinine wnl. Functional Status: Reports: Pain Controlled - Review of Systems General: Reports: No Symptoms HEENT: Reports: No Symptoms Pulmonary: Reports: No Symptoms Cardiovascular: Reports: No Symptoms Gastrointestinal: Reports: No Symptoms Genitourinary: Reports: No Symptoms Musculoskeletal: Reports: No Symptoms Skin: Reports: No Symptoms Neurological: Reports: No Symptoms Psychiatric: Reports: No Symptoms - Patient Data Vitals - Most Recent: Last Vital Signs Temp 97.9 F 12/03/19 08:11 Pulse 68 12/03/19 08:11 Resp 20 12/03/19 08:11 BP 117/62 12/03/19 08:11 Pulse Ox 99 12/03/19 08:11 Weight - Most Recent: 231 lb I&O - Last 24 Hours: Intake & Output 12/02/19 12/03/19 12/03/19 22:59 06:59 14:59 Intake Total 644 2018 Output Total 600 550 Balance 644 1418 -550 Lab Results Last 24 Hours: Laboratory Results - last 24 hr 12/02/19 12/02/19 12/02/19 Range/Units 12:55 12:55 12:55 WBC 15.2 H (5.0-10.0) 10^3/uL RBC 5.56 (4.6-6.2) 10^6/uL Hgb 16.9 D (14.0-18.0) g/dL Hct 47.7 (40.0-54.0) % MCV 85.8 D (80-100) fL MCH 30.4 (27.0-34.0) pg MCHC 35.4 H (33.0-35.0) g/dL Plt Count 284 (150-450) 10^3/uL Neut % (Auto) 75.4 H (42.2-75.2) % Lymph % (Auto) 14.8 L (20.5-50.1) % [place] % (Auto) 9.4 H (2-8) % Eos % (Auto) 0.1 L (1.0-3.0) % Baso % (Auto) 0.3 (0.0-1.0) % Sodium 139 (136-145) mmol/L Potassium 4.0 (3.5-5.1) mmol/L Chloride 99 (98-107) mmol/L Carbon Dioxide 21 (21-32) mmol/L Anion Gap 23.0 H (7-13) mEq/L BUN 38 H (7-18) mg/dL Creatinine 1.24 (0.70-1.30) mg/dL Est Cr Clr Drug Dosing 82.36 mL/min Estimated GFR (MDRD) > 60 BUN/Creatinine Ratio 30.6 (No establ ref range) Glucose 73 L (74-99) mg/dL POC Glucose (70-105) mg/dl Lactic Acid 1.0 (0.4-2.0) mmol/L Calcium 9.1 (8.5-10.1) mg/dL Phosphorus (2.6-4.7) mg/dL Magnesium 2.2 (1.8-2.4) mg/dL Total Bilirubin 1.6 H (0.2-1.0) mg/dL Direct Bilirubin (0.0-0.2) mg/dL Indirect Bilirubin AST 146 H (15-37) U/L ALT 71 H (16-63) U/L Alkaline Phosphatase 106 (46-116) U/L Creatine Kinase > 1000 H (39-308) U/L C-Reactive Protein 2.7 H (0.0-0.9) mg/dL Total Protein 8.1 (6.4-8.2) g/dL Albumin 4.7 (3.4-5.0) g/dL Globulin 3.4 Albumin/Globulin Ratio 1.4 Urine Color (YELLOW) Urine Appearance (CLEAR) Urine pH (5.0-9.0) Ur Specific [place] (1.005-1.030) Urine Protein (NEGATIVE) Urine Glucose (UA) (NEGATIVE) Urine Ketones (NEGATIVE) Urine Occult Blood (NEGATIVE) Urine Nitrite (NEGATIVE) Urine Bilirubin (NEGATIVE) Urine Urobilinogen (0.2-1.0) mg/dL Ur Leukocyte Esterase (NEGATIVE) U Hyaline Cast (Auto) Urine RBC /HPF Urine WBC (0-5/HPF) /HPF Ur Epithelial Cells (NOT SEEN) /HPF Amorphous Sediment (NOT SEEN) /HPF Urine Bacteria (0-FEW/HPF) /HPF Fine Granular Casts (NOT SEEN) /LPF Urine Mucus (NOT SEEN) /LPF Urine Opiates Screen (NEGATIVE) Ur Oxycodone Screen (NEGATIVE) Urine Methadone Screen (NEGATIVE) Ur Barbiturates Screen (NEGATIVE) U Tricyclic Antidepress (NEGATIVE) Ur Phencyclidine Scrn (NEGATIVE) Ur Amphetamine Screen (NEGATIVE) U Methamphetamines Scrn (NEGATIVE) Urine MDMA Screen (NEGATIVE) U Benzodiazepines Scrn (NEGATIVE) Urine Cocaine Screen (NEGATIVE) U Marijuana (THC) Screen (NEGATIVE) Ethyl Alcohol < 3 (0) mg/dL 12/02/19 12/02/19 12/02/19 Range/Units 12:55 13:03 14:04 WBC (5.0-10.0) 10^3/uL RBC (4.6-6.2) 10^6/uL Hgb (14.0-18.0) g/dL Hct (40.0-54.0) % MCV (80-100) fL MCH (27.0-34.0) pg MCHC (33.0-35.0) g/dL Plt Count (150-450) 10^3/uL Neut % (Auto) (42.2-75.2) % Lymph % (Auto) (20.5-50.1) % [place] % (Auto) (2-8) % Eos % (Auto) (1.0-3.0) % Baso % (Auto) (0.0-1.0) % Sodium (136-145) mmol/L Potassium (3.5-5.1) mmol/L Chloride (98-107) mmol/L Carbon Dioxide (21-32) mmol/L Anion Gap (7-13) mEq/L BUN (7-18) mg/dL Creatinine (0.70-1.30) mg/dL Est Cr Clr Drug Dosing mL/min Estimated GFR (MDRD) BUN/Creatinine Ratio (No establ ref range) Glucose (74-99) mg/dL POC Glucose 64 L (70-105) mg/dl Lactic Acid (0.4-2.0) mmol/L Calcium (8.5-10.1) mg/dL Phosphorus 4.3 (2.6-4.7) mg/dL Magnesium (1.8-2.4) mg/dL Total Bilirubin (0.2-1.0) mg/dL Direct Bilirubin (0.0-0.2) mg/dL Indirect Bilirubin AST (15-37) U/L ALT (16-63) U/L Alkaline Phosphatase (46-116) U/L Creatine Kinase (39-308) U/L C-Reactive Protein (0.0-0.9) mg/dL Total Protein (6.4-8.2) g/dL Albumin (3.4-5.0) g/dL Globulin Albumin/Globulin Ratio Urine Color Dark yellow (YELLOW) Urine Appearance Slightly cloudy (CLEAR) Urine pH 5.5 (5.0-9.0) Ur Specific [place] >= 1.030 (1.005-1.030) Urine Protein 100 H (NEGATIVE) Urine Glucose (UA) Negative (NEGATIVE) Urine Ketones >=160 H (NEGATIVE) Urine Occult Blood Moderate H (NEGATIVE) Urine Nitrite Negative (NEGATIVE) Urine Bilirubin Small H (NEGATIVE) Urine Urobilinogen 0.2 (0.2-1.0) mg/dL Ur Leukocyte Esterase Negative (NEGATIVE) U Hyaline Cast (Auto) Few Urine RBC 0-5 /HPF Urine WBC 0-5 (0-5/HPF) /HPF Ur Epithelial Cells Rare (NOT SEEN) /HPF Amorphous Sediment Few (NOT SEEN) /HPF Urine Bacteria Few (0-FEW/HPF) /HPF Fine Granular Casts Few H (NOT SEEN) /LPF Urine Mucus Few H (NOT SEEN) /LPF Urine Opiates Screen (NEGATIVE) Ur Oxycodone Screen (NEGATIVE) Urine Methadone Screen (NEGATIVE) Ur Barbiturates Screen (NEGATIVE) U Tricyclic Antidepress (NEGATIVE) Ur Phencyclidine Scrn (NEGATIVE) Ur Amphetamine Screen (NEGATIVE) U Methamphetamines Scrn (NEGATIVE) Urine MDMA Screen (NEGATIVE) U Benzodiazepines Scrn (NEGATIVE) Urine Cocaine Screen (NEGATIVE) U Marijuana (THC) Screen (NEGATIVE) Ethyl Alcohol (0) mg/dL 05/06/1212/02/19 12/03/19 Range/Units 14:04 14:53 05:57 WBC 7.5 (5.0-10.0) 10^3/uL RBC 4.51 L (4.6-6.2) 10^6/uL Hgb 13.7 L D (14.0-18.0) g/dL Hct 40.2 (40.0-54.0) % MCV 89.1 D (80-100) fL MCH 30.4 (27.0-34.0) pg MCHC 34.1 (33.0-35.0) g/dL Plt Count 219 (150-450) 10^3/uL Neut % (Auto) (42.2-75.2) % Lymph % (Auto) (20.5-50.1) % [place] % (Auto) (2-8) % Eos % (Auto) (1.0-3.0) % Baso % (Auto) (0.0-1.0) % Sodium (136-145) mmol/L Potassium (3.5-5.1) mmol/L Chloride (98-107) mmol/L Carbon Dioxide (21-32) mmol/L Anion Gap (7-13) mEq/L BUN (7-18) mg/dL Creatinine (0.70-1.30) mg/dL Est Cr Clr Drug Dosing mL/min Estimated GFR (MDRD) BUN/Creatinine Ratio (No establ ref range) Glucose (74-99) mg/dL POC Glucose 100 (70-105) mg/dl Lactic Acid (0.4-2.0) mmol/L Calcium (8.5-10.1) mg/dL Phosphorus (2.6-4.7) mg/dL Magnesium (1.8-2.4) mg/dL Total Bilirubin (0.2-1.0) mg/dL Direct Bilirubin (0.0-0.2) mg/dL Indirect Bilirubin AST (15-37) U/L ALT (16-63) U/L Alkaline Phosphatase (46-116) U/L Creatine Kinase (39-308) U/L C-Reactive Protein (0.0-0.9) mg/dL Total Protein (6.4-8.2) g/dL Albumin (3.4-5.0) g/dL Globulin Albumin/Globulin Ratio Urine Color (YELLOW) Urine Appearance (CLEAR) Urine pH (5.0-9.0) Ur Specific [place] (1.005-1.030) Urine Protein (NEGATIVE) Urine Glucose (UA) (NEGATIVE) Urine Ketones (NEGATIVE) Urine Occult Blood (NEGATIVE) Urine Nitrite (NEGATIVE) Urine Bilirubin (NEGATIVE) Urine Urobilinogen (0.2-1.0) mg/dL Ur Leukocyte Esterase (NEGATIVE) U Hyaline Cast (Auto) Urine RBC /HPF Urine WBC (0-5/HPF) /HPF Ur Epithelial Cells (NOT SEEN) /HPF Amorphous Sediment (NOT SEEN) /HPF Urine Bacteria (0-FEW/HPF) /HPF Fine Granular Casts (NOT SEEN) /LPF Urine Mucus (NOT SEEN) /LPF Urine Opiates Screen Negative (NEGATIVE) Ur Oxycodone Screen Negative (NEGATIVE) Urine Methadone Screen Negative (NEGATIVE) Ur Barbiturates Screen Negative (NEGATIVE) U Tricyclic Antidepress Negative (NEGATIVE) Ur Phencyclidine Scrn Negative (NEGATIVE) Ur Amphetamine Screen Positive H (NEGATIVE) U Methamphetamines Scrn Positive H (NEGATIVE) Urine MDMA Screen Positive H (NEGATIVE) U Benzodiazepines Scrn Negative (NEGATIVE) Urine Cocaine Screen Negative (NEGATIVE) U Marijuana (THC) Screen Positive H (NEGATIVE) Ethyl Alcohol (0) mg/dL 12/03/19 Range/Units 05:57 WBC (5.0-10.0) 10^3/uL RBC (4.6-6.2) 10^6/uL Hgb (14.0-18.0) g/dL Hct (40.0-54.0) % MCV (80-100) fL MCH (27.0-34.0) pg MCHC (33.0-35.0) g/dL Plt Count (150-450) 10^3/uL Neut % (Auto) (42.2-75.2) % Lymph % (Auto) (20.5-50.1) % [place] % (Auto) (2-8) % Eos % (Auto) (1.0-3.0) % Baso % (Auto) (0.0-1.0) % Sodium 141 (136-145) mmol/L Potassium 3.8 (3.5-5.1) mmol/L Chloride 104 (98-107) mmol/L Carbon Dioxide 26 (21-32) mmol/L Anion Gap 14.8 H (7-13) mEq/L BUN 27 H (7-18) mg/dL Creatinine 1.25 (0.70-1.30) mg/dL Est Cr Clr Drug Dosing 81.70 mL/min Estimated GFR (MDRD) > 60 BUN/Creatinine Ratio (No establ ref range) Glucose 102 H (74-99) mg/dL POC Glucose (70-105) mg/dl Lactic Acid (0.4-2.0) mmol/L Calcium 7.9 L (8.5-10.1) mg/dL Phosphorus 3.1 (2.6-4.7) mg/dL Magnesium (1.8-2.4) mg/dL Total Bilirubin 1.4 H (0.2-1.0) mg/dL Direct Bilirubin 0.3 H (0.0-0.2) mg/dL Indirect Bilirubin 1.1 AST 115 H (15-37) U/L ALT 59 (16-63) U/L Alkaline Phosphatase 77 (46-116) U/L Creatine Kinase 5416 H (39-308) U/L C-Reactive Protein (0.0-0.9) mg/dL Total Protein 6.0 L (6.4-8.2) g/dL Albumin 3.3 L (3.4-5.0) g/dL Globulin 2.7 Albumin/Globulin Ratio 1.22 Urine Color (YELLOW) Urine Appearance (CLEAR) Urine pH (5.0-9.0) Ur Specific [place] (1.005-1.030) Urine Protein (NEGATIVE) Urine Glucose (UA) (NEGATIVE) Urine Ketones (NEGATIVE) Urine Occult Blood (NEGATIVE) Urine Nitrite (NEGATIVE) Urine Bilirubin (NEGATIVE) Urine Urobilinogen (0.2-1.0) mg/dL Ur Leukocyte Esterase (NEGATIVE) U Hyaline Cast (Auto) Urine RBC /HPF Urine WBC (0-5/HPF) /HPF Ur Epithelial Cells (NOT SEEN) /HPF Amorphous Sediment (NOT SEEN) /HPF Urine Bacteria (0-FEW/HPF) /HPF Fine Granular Casts (NOT SEEN) /LPF Urine Mucus (NOT SEEN) /LPF Urine Opiates Screen (NEGATIVE) Ur Oxycodone Screen (NEGATIVE) Urine Methadone Screen (NEGATIVE) Ur Barbiturates Screen (NEGATIVE) U Tricyclic Antidepress (NEGATIVE) Ur Phencyclidine Scrn (NEGATIVE) Ur Amphetamine Screen (NEGATIVE) U Methamphetamines Scrn (NEGATIVE) Urine MDMA Screen (NEGATIVE) U Benzodiazepines Scrn (NEGATIVE) Urine Cocaine Screen (NEGATIVE) U Marijuana (THC) Screen (NEGATIVE) Ethyl Alcohol (0) mg/dL Med Orders - Current: Current Medications Acetaminophen (Tylenol) 650 mg PO Q4H PRN PRN Reason: Pain (Mild 1-3)/fever Last Admin: 12/02/19 19:58 Dose: 650 mg Docusate Sodium (Colace) 100 mg PO BID PRN PRN Reason: Constipation Enoxaparin Sodium (Lovenox) 40 mg SUBCUT DAILY [facility] Last Admin: 12/03/19 10:02 Dose: 40 mg Dextrose/Sodium Chloride (Dextrose 5%-1/2 Ns) 1,000 mls @ 150 mls/hr IV ASDIRECTED [facility] Last Admin: 12/02/19 14:14 Dose: 150 mls/hr Sodium Chloride (Normal Saline) 1,000 mls @ 250 mls/hr IV ASDIRECTED [facility] Last Admin: 12/03/19 10:03 Dose: 250 mls/hr Piperacillin Sod/Tazobactam (Sod 3.375 gm/ Sodium Chloride) 100 mls @ 200 mls/ hr IV Q6HR [facility] Last Admin: 12/03/19 05:45 Dose: 200 mls/hr Lorazepam (Ativan) 2 mg IVPUSH ONETIME PRN PRN Reason: Seizures Magnesium Hydroxide (Milk Of Magnesia) 30 ml PO Q12H PRN PRN Reason: Constipation Ondansetron HCl (Zofran Odt) 4 mg PO Q6H PRN PRN Reason: nausea, able to take PO Sodium Chloride (Saline Flush) 10 ml FLUSH ASDIRECTED PRN PRN Reason: Keep Vein Open Last Admin: 12/02/19 13:03 Dose: 10 ml Discontinued Medications Fentanyl (Sublimaze) 50 mcg IVPUSH ONETIME ONE Stop: 12/02/19 14:05 Last Admin: 12/02/19 14:16 Dose: 50 mcg Lactated Ringer's (Ringers, Lactated) 1,000 mls @ 999 mls/hr IV .BOLUS ONE Stop: 12/02/19 13:55 Last Admin: 12/02/19 13:03 Dose: 999 mls/hr Ketorolac Tromethamine (Toradol) 30 mg IVPUSH ONETIME ONE Stop: 12/02/19 14:05 Last Admin: 12/02/19 14:15 Dose: 30 mg Ondansetron HCl (Zofran) 4 mg IV ONETIME ONE Stop: 12/02/19 14:06 Last Admin: 12/02/19 14:15 Dose: 4 mg Simethicone (Simethicone) 160 mg PO ONETIME ONE Stop: 12/02/19 21:01 Last Admin: 12/02/19 20:44 Dose: 160 mg Simethicone (Simethicone) 80 mg PO ONETIME ONE Stop: 12/03/19 09:01 Last Admin: 12/03/19 09:05 Dose: Not Given - Exam Quality Assessment: DVT Prophylaxis General: Alert, Oriented HEENT: Pupils Equal, Pupils Reactive, EOMI, Mucous Membr. Moist/[place] Neck: Supple Lungs: Clear to Auscultation, Normal Respiratory Effort Cardiovascular: Regular Rate, Regular Rhythm GI/Abdominal Exam: Normal Bowel Sounds, Soft, Non-Tender, No Organomegaly, No Distention, No Abnormal Bruit, No Mass, Pelvis Stable (Male) Exam: No Hernia, Normal Inspection, Normal Prostate, Circumcised Back Exam: Normal Inspection, Full Range of Motion Extremities: Normal Inspection, Normal Range of Motion, Non-Tender, No Pedal Edema, Normal Capillary Refill Skin: Warm, Dry, Intact Wound/Incisions: Healing Well Neurological: No New Focal Deficit Psy/Mental Status: Alert, Normal Affect, Normal Mood Sepsis Event Note - Evaluation Sepsis Screening Result: Sepsis Risk - Focused Exam Vital Signs: Vital Signs Temp Pulse Resp BP Pulse Ox 12/03/19 08:11 97.9 F 68 20 117/62 99 12/03/19 00:00 98.2 F 92 18 129/48 L 97 Date Exam was Performed: 12/03/19 Time Exam was Performed: 10:11 - Problem List & Annotations (1) Dehydration SNOMED Code(s): 27002929 Code(s): E86.0 - DEHYDRATION Status: Acute Current Visit: Yes (2) Marijuana abuse SNOMED Code(s): 82959273 Code(s): F12.10 - CANNABIS ABUSE, UNCOMPLICATED Status: Acute Current Visit: No (3) Methamphetamine abuse SNOMED Code(s): 486349177 Code(s): F15.10 - OTHER STIMULANT ABUSE, UNCOMPLICATED Status: Acute Current Visit: No (4) Rhabdomyolysis SNOMED Code(s): 384270501 Code(s): M62.82 - RHABDOMYOLYSIS Status: Acute Current Visit: No Qualifiers: Rhabdomyolysis type: non-traumatic Qualified Code(s): M62.82 - Rhabdomyolysis (5) Leukocytosis SNOMED Code(s): 360678900, 106351800 Code(s): D72.829 - ELEVATED WHITE BLOOD CELL COUNT, UNSPECIFIED Status: Acute Current Visit: Yes (6) Abnormal liver function SNOMED Code(s): 41762713 Code(s): R94.5 - ABNORMAL RESULTS OF LIVER FUNCTION STUDIES Status: Acute Current Visit: Yes (7) Sepsis SNOMED Code(s): 66054828 Code(s): A41.9 - SEPSIS, UNSPECIFIED ORGANISM Status: Acute Current Visit : Yes - Problem List Review Problem List Initiated/Reviewed/Updated: Yes - My Orders Last 24 Hours: My Active Orders 12/02/19 14:58 Admission Diagnosis [ADT] Routine Patient Status [ADT] Routine 12/02/19 15:27 Ambulate [RC] ASDIRECTED Height and Weight [RC] 06 Intake and Output [RC] QSHIFT Oxygen Therapy [RC] PRN VTE/DVT Education [RC] PER UNIT ROUTINE Vital Signs [RC] 00,04,08,12,16,20 Acetaminophen [Tylenol] 650 mg PO Q4H PRN Docusate Sodium [Colace] 100 mg PO BID PRN Magnesium Hydroxide [Milk of Magnesia] 30 ml PO Q12H PRN Ondansetron [Zofran ODT] 4 mg PO Q6H PRN Resuscitation Status Routine 12/02/19 15:30 Sodium Chloride 0.9% [Normal Saline] 1,000 ml IV ASDIRECTED 12/02/19 16:15 Piperacillin/Tazobactam [Zosyn] 3.375 gm Sodium Chloride 0.9% [Normal Saline] 100 ml IV Q6HR 12/02/19 16:42 LORazepam [Ativan] 2 mg IVPUSH ONETIME PRN 12/02/19 Dinner Regular Diet [DIET] 12/03/19 05:57 HEPATITIS PANEL (4) [REF] Routine 12/03/19 08:00 Abdomen Ltd [US] Routine 12/03/19 09:00 Enoxaparin [Lovenox] 40 mg SUBCUT DAILY 12/04/19 07:00 BASIC METABOLIC PANEL,BMP [CHEM] DAILY CBC W/O DIFF,HEMOGRAM [HEME] DAILY CPK [CREATINE KINASE,CK] [CHEM] DAILY PHOSPHORUS [CHEM] DAILY 12/05/19 07:00 BASIC METABOLIC PANEL,BMP [CHEM] DAILY CBC W/O DIFF,HEMOGRAM [HEME] DAILY CPK [CREATINE KINASE,CK] [CHEM] DAILY PHOSPHORUS [CHEM] DAILY 12/06/19 07:00 BASIC METABOLIC PANEL,BMP [CHEM] DAILY CBC W/O DIFF,HEMOGRAM [HEME] DAILY CPK [CREATINE KINASE,CK] [CHEM] DAILY PHOSPHORUS [CHEM] DAILY - Plan Plan:: #Rhabdomyolysis -CK trending up -Continue IV hydration. Normal saline at 250 mL/hr -Daily CK, phosphorus #Dehydration -Resolved #Right toes frostbite. -Peripheral pulses intact. Moving toes -Podiatry consulted #Probable sepsis -Resolved #Anion gap metabolic acidosis likely due to starvation ketosis -Improved #Abnormal LFTs -Improving -Hepatitis profile in process -RUQ US, report pending -Monitor LFts daily #Substance abuse(marijuana, methamphetamine) -U tox positive for marijuana and methamphetamine -Counseled to quit #DVT ppx -Heparin SQ #Regular diet
--- NOTE | 2019-12-03 13:12 | US ---
EXAMINATION: Abdomen Ltd SEX: Male AGE: 34 years CLINICAL HISTORY: 34-year-old male with abnormally elevated liver function tests, rule out gallbladder disease or intrahepatic mass lesion. INTERPRETATION: 1. Liver is abnormal, i.e. borderline enlarged (17.5 cm L) with focal 3.5 cm echogenic mass (hemangioma? Falciform ligament?) identified in the left lobe. No other discrete echogenic solid or hypoechoic cystic hepatic mass lesion and no abnormal dilatation of the intra or extrahepatic biliary ducts (common bile duct measures 5 mm diameter). 2. Pancreas needs further evaluation (head nonvisualized and tail may be slightly enlarged). CT or MRI upper abdomen recommended. Head not seen. No discrete pancreatic mass, calcification or abnormal major pancreatic duct dilatation. No peripancreatic edema or ascites. 3. Gallbladder clearly demonstrated in the right upper quadrant beneath the liver margin is normal size and anatomic configuration with uniformly thin wall. No pericystic fluid, mucosal wall polyp or mobile dependent intraluminal echogenic "shadowing" gallstones. 4. Right kidney normal. CONCLUSION: Probable small hemangioma left lobe of the liver. Mild hepatomegaly. Nonvisualization pancreas. Recommend considering CT (with contrast) or MRI exam of the abdomen.
[2019-12-03] MEDS: Cephalexin 500 MG Cap PO SCH (23:42)
[2019-12-04] MEDS: Sodium Chloride 0.9% 1,000 ML IV SCH ×6 (02:56→23:01)
[2019-12-04] MEDS: Cephalexin 500 MG Cap PO SCH ×4 (05:44→23:03)
[2019-12-04 07:02] LABS: ANION GAP 11.9 mEq/L (7-13); CHLORIDE,CL 107 mmol/L (98-107); SODIUM,NA 140 mmol/L (136-145)
[2019-12-04] MEDS: Enoxaparin 40 MG/0.4 ML Syringe SUBCUT SCH (08:39)
[2019-12-04] MEDS: Furosemide 40 MG/4 ML VIAL IVPUSH SCH ×2 (09:54→13:55)
--- NOTE | 2019-12-04 10:52 | PCM.PN ---
- General Info Date of Service: 12/04/19 Admission Dx/Problem (Free Text): Admission Diagnosis/Problem Admission Diagnosis/Problem Frostbite/Rhabdomyolysis Subjective Update: Shady is34 y/o M with PMH of substance abuse. Patient's uses methamphetamine but apparently has been in remission for the past 8 months. He relapsed 3 days ago. Patient was brought to the ED for evaluation of hallucination, body pains and frostbite to the left toe. He was admitted for rhabdomyolysis. Today he is doing ok. Continues to have right foot pain. Cr improved from 1.25 to 0.79. CK has started coming down, from 5416 to 2922. Appears swollen. Denies fevers, chills, chest pain, shortness of breath, n/v/d/c or any acute symptoms. Functional Status: Reports: Pain Controlled, Tolerating Diet - Review of Systems General: Reports: No Symptoms HEENT: Reports: No Symptoms Pulmonary: Reports: No Symptoms Cardiovascular: Reports: No Symptoms Gastrointestinal: Reports: No Symptoms Genitourinary: Reports: No Symptoms Musculoskeletal: Reports: No Symptoms, Joint Swelling Skin: Reports: No Symptoms Neurological: Reports: No Symptoms Psychiatric: Reports: No Symptoms - Patient Data Vitals - Most Recent: Last Vital Signs Temp 98.4 F 12/04/19 08:21 Pulse 61 12/04/19 08:21 Resp 20 12/04/19 08:21 BP 129/60 12/04/19 08:21 Pulse Ox 100 12/04/19 08:21 Weight - Most Recent: 244 lb 6.4 oz I&O - Last 24 Hours: Intake & Output 12/03/19 12/04/19 12/04/19 22:59 06:59 14:59 Intake Total 1180 4032 Output Total 700 Balance 1180 3332 Lab Results Last 24 Hours: Laboratory Results - last 24 hr 12/04/19 12/04/19 Range/Units 06:21 06:21 WBC 4.8 L (5.0-10.0) 10^3/uL RBC 3.94 L (4.6-6.2) 10^6/uL Hgb 12.0 L D (14.0-18.0) g/dL Hct 35.7 L (40.0-54.0) % MCV 90.6 (80-100) fL MCH 30.5 (27.0-34.0) pg MCHC 33.6 (33.0-35.0) g/dL Plt Count 213 (150-450) 10^3/uL Sodium 140 (136-145) mmol/L Potassium 3.9 (3.5-5.1) mmol/L Chloride 107 (98-107) mmol/L Carbon Dioxide 25 (21-32) mmol/L Anion Gap 11.9 (7-13) mEq/L BUN 12 (7-18) mg/dL Creatinine 0.79 (0.70-1.30) mg/dL Est Cr Clr Drug Dosing 129.27 mL/min Estimated GFR (MDRD) > 60 Glucose 97 (74-99) mg/dL Calcium 7.4 L (8.5-10.1) mg/dL Phosphorus 2.3 L (2.6-4.7) mg/dL Creatine Kinase 2922 H (39-308) U/L Med Orders - Current: Current Medications Acetaminophen (Tylenol) 650 mg PO Q4H PRN PRN Reason: Pain (Mild 1-3)/fever Last Admin: 12/02/19 19:58 Dose: 650 mg Cephalexin (Keflex) 500 mg PO Q6HR [facility] Last Admin: 12/04/19 05:44 Dose: 500 mg Docusate Sodium (Colace) 100 mg PO BID PRN PRN Reason: Constipation Enoxaparin Sodium (Lovenox) 40 mg SUBCUT DAILY [facility] Last Admin: 12/04/19 08:39 Dose: 40 mg Furosemide (Lasix) 40 mg IVPUSH BIDDIURETIC [facility] Last Admin: 12/04/19 09:54 Dose: 40 mg Sodium Chloride (Normal Saline) 1,000 mls @ 250 mls/hr IV ASDIRECTED [facility] Last Admin: 12/04/19 06:53 Dose: 250 mls/hr Lorazepam (Ativan) 2 mg IVPUSH ONETIME PRN PRN Reason: Seizures Magnesium Hydroxide (Milk Of Magnesia) 30 ml PO Q12H PRN PRN Reason: Constipation Ondansetron HCl (Zofran Odt) 4 mg PO Q6H PRN PRN Reason: nausea, able to take PO Sodium Chloride (Saline Flush) 10 ml FLUSH ASDIRECTED PRN PRN Reason: Keep Vein Open Last Admin: 12/02/19 13:03 Dose: 10 ml Discontinued Medications Fentanyl (Sublimaze) 50 mcg IVPUSH ONETIME ONE Stop: 12/02/19 14:05 Last Admin: 12/02/19 14:16 Dose: 50 mcg Lactated Ringer's (Ringers, Lactated) 1,000 mls @ 999 mls/hr IV .BOLUS ONE Stop: 12/02/19 13:55 Last Admin: 12/02/19 13:03 Dose: 999 mls/hr Dextrose/Sodium Chloride (Dextrose 5%-1/2 Ns) 1,000 mls @ 150 mls/hr IV ASDIRECTED [facility] Last Admin: 12/02/19 14:14 Dose: 150 mls/hr Piperacillin Sod/Tazobactam (Sod 3.375 gm/ Sodium Chloride) 100 mls @ 200 mls/ hr IV Q6HR [facility] Last Infusion: 12/03/19 18:44 Dose: Infused Ketorolac Tromethamine (Toradol) 30 mg IVPUSH ONETIME ONE Stop: 12/02/19 14:05 Last Admin: 12/02/19 14:15 Dose: 30 mg Ondansetron HCl (Zofran) 4 mg IV ONETIME ONE Stop: 12/02/19 14:06 Last Admin: 12/02/19 14:15 Dose: 4 mg Simethicone (Simethicone) 160 mg PO ONETIME ONE Stop: 12/02/19 21:01 Last Admin: 12/02/19 20:44 Dose: 160 mg Simethicone (Simethicone) 80 mg PO ONETIME ONE Stop: 12/03/19 09:01 Last Admin: 12/03/19 09:05 Dose: Not Given - Exam General: Alert, Oriented, Cooperative, No Acute Distress, Other (Appears swollen drom head to toes) HEENT: Pupils Equal, Pupils Reactive Neck: Supple, Trachea Midline Lungs: Clear to Auscultation, Normal Respiratory Effort Cardiovascular: Regular Rate, Regular Rhythm GI/Abdominal Exam: Normal Bowel Sounds, Soft, Non-Tender, No Distention Extremities: Normal Inspection, Non-Tender, Pedal Edema, Other (4th and 5th toes of right leg tender to palpation. ) Skin: Warm, Dry, Intact Neurological: Other (Sensation intact in all toes and both feet. ) Psy/Mental Status: Alert, Normal Affect, Normal Mood Sepsis Event Note - Evaluation Sepsis Screening Result: No Definite Risk - Focused Exam Vital Signs: Vital Signs Temp Pulse Resp BP Pulse Ox 12/04/19 08:21 98.4 F 61 20 129/60 100 Date Exam was Performed: 12/04/19 Time Exam was Performed: 10:47 - Problem List Review Problem List Initiated/Reviewed/Updated: Yes - My Orders Last 24 Hours: My Active Orders 12/04/19 09:15 Furosemide [Lasix] 40 mg IVPUSH BIDDIURETIC - Plan Plan:: #Rhabdomyolysis -CK down from 5416 to 2922. -Continue IV hydration. Normal saline at 250 mL/hr -Daily CK, phosphorus - Lasix 40 mg BID - Encouraged ambulation. #Dehydration -Resolved #Right toes frostbite. -Peripheral pulses intact. Moving toes -Sensation intact in toes. -Outpatient follow up with Podiatry #Probable sepsis -Resolved #Anion gap metabolic acidosis likely due to starvation ketosis -Improved #Abnormal LFTs -Improving -Hepatitis profile in process -RUQ US, report pending -Monitor LFts daily #Substance abuse(marijuana, methamphetamine) -U tox positive for marijuana and methamphetamine -Counseled to quit #DVT ppx -Heparin SQ #Regular diet
[2019-12-04] MEDS ORDERED: Phosphorus #1 250 MG Tab PO ONE (10:53)
[2019-12-05] MEDS: Sodium Chloride 0.9% 1,000 ML IV SCH ×2 (02:50→06:35)
[2019-12-05] MEDS: Cephalexin 500 MG Cap PO SCH (05:41)
[2019-12-05 06:32] LABS: ANION GAP 10.2 mEq/L (7-13); CHLORIDE,CL 107 mmol/L (98-107); SODIUM,NA 144 mmol/L (136-145)
[2019-12-05 08:29] VITALS: BP 122/68; PULSE 59
[2019-12-05] MEDS: Furosemide 40 MG/4 ML VIAL IVPUSH SCH (08:37)
[2019-12-05] MEDS: Enoxaparin 40 MG/0.4 ML Syringe SUBCUT SCH (08:37)
--- NOTE | 2019-12-05 10:07 | PCM.DCSUM1 ---
Discharge Summary - Hospital Course Free Text/Narrative:: Shady is34 y/o M with PMH of substance abuse. Patient's uses methamphetamine but apparently has been in remission for the past 8 months. He relapsed 3 days ago. Patient was brought to the ED for evaluation of hallucination, body pains and frostbite to the left toe. He was admitted for rhabdomyolysis. Initial CK on presentation was greater than 1000 per lab report. He was started on IV fluids. His creatinine was 1.25 on presentation. Creatinine trended down to 0.76. CK the following morning was 5416. Improved to 2922 and subsequently went up to 3056. Phosphorus was low at 2.3. He was given oral phosphorus replacement. Creatinine remained stable at 0.87. Phosphorus went up to 3.5 for post placement. CK came back this morning with 1857. Pulses remain palpable and patient has sensation in bilateral lower extremities. Bluish discoloration of the right toes improved. Patient was able to ambulate without walker or assistive device. Ultrasound of the right lower extremity was negative for DVT. Not significant leukocytosis with WBC count of 15.7 on presentation. Improved to 7.5 with antibiotics. Continued to trended down to 4.5. Hemoglobin was 16.9 on presentation and came down to 12.7, most likely hemodilution. He is being discharged home to follow-up with podiatry and PCP. He was educated to keep hydrated and to obtain CK level tomorrow. He is to follow-up with [facility] for substance abuse rehab. HPI Initial Comments: Shady is34 y/o M with PMH of substance abuse. Patient's uses methamphetamine but apparently has been in remission for the past 8 months. He relapsed 3 days ago. Patient was brought to the ED for evaluation of hallucination and frostbite to the left toe. He was brought to the ED via EMS complaining of feeling cold. Patient said he was lying outside on the ground all night for about 12 hours. He lost his shoes and he laid down on the cold ground for about 12 hours. According to patient he was chased out of his home by the police and ended up somewhat dehydrated and could not help himself up. This morning he was having pain all over his body and feeling cold. So he crawled about [address] he could seek help. EMS was activated and he was brought to the ED. Patient's history appears to be inconsistent. He denies passing out. He has no chest pain, shortness of breath, fever, chills. No headaches. He only reports pain all over the body and feeling weak and tired and dehydrated. He admits using methamphetamine and marijuana. He reports pain and purple discoloration to the right foot. In the ED vitals were unremarkable. Significant labs; WBC 15 K, creatinine greater than thousand. Utox positive for marijuana and methamphetamine. Other labs essentially unremarkable. He was started on IV fluids. As per the ED vitals, Dr. Rahman he consulted miter cutter who promised to see patient today. Diagnosis: Stroke: No - Discharge Data Discharge Date: 12/05/19 Discharge Disposition: Home, Self-Care 01 Condition: Good - Referral to Home Health Primary Care Physician: PCP Unobtainable - Discharge Plan *PRESCRIPTION DRUG MONITORING PROGRAM REVIEWED*: No *COPY OF PRESCRIPTION DRUG MONITORING REPORT IN PATIENT ALTAGRACIA: No Prescriptions/Med Rec: cephALEXin [Keflex] 500 mg PO Q6HR #8 cap Acetaminophen [Tylenol] 650 mg PO Q6H PRN #60 tablet PRN Reason: Pain (Mild 1-3)/fever Phosphorus #1 [Neutra-Phos] 250 mg PO BID #6 tab Home Medications: Home Meds Ibuprofen [Ibuprofen Ib] 800 mg PO ASDIRECTED PRN 05/04/18 [History] Acetaminophen [Tylenol] 650 mg PO Q6H PRN #60 tablet 12/05/19 [Rx] Phosphorus #1 [Neutra-Phos] 250 mg PO BID #6 tab 12/05/19 [Rx] cephALEXin [Keflex] 500 mg PO Q6HR #8 cap 12/05/19 [Rx] Oxygen Therapy Mode: Room Air Patient Handouts: Rhabdomyolysis, Cephalexin tablets or capsules, Phosphorus Salts powder for oral solution Referrals: Nikkie Blake DPM [Physician] - - Discharge Summary/Plan Comment DC Time >30 min.: Yes - General Info Date of Service: 12/05/19 Admission Dx/Problem (Free Text: Admission Diagnosis/Problem Admission Diagnosis/Problem Frostbite/Rhabdomyolysis Subjective Update: No acute events overnight. Continues to have significant urine output. Reports that he has pressure sensation when he bears weight on his right foot. Concerned that he will injure his foot if he bumps into an object. Denies fevers, chills, chest pain, shortness of breath, nausea, vomiting, abdominal pain, dysuria, hematuria, or any other symptoms. - Patient Data Vitals - Most Recent: Last Vital Signs Temp 98.6 F 12/05/19 08:00 Pulse 59 L 12/05/19 08:00 Resp 18 12/05/19 08:00 BP 122/68 12/05/19 08:00 Pulse Ox 99 12/05/19 08:00 Weight - Most Recent: 229 lb 9.6 oz I&O - Last 24 hours: Intake & Output 12/04/19 12/05/19 12/05/19 22:59 06:59 14:59 Intake Total 3302 1676 Output Total 1300 600 Balance 2001 1076 Lab Results - Last 24 hrs: Laboratory Results - last 24 hr 12/03/19 12/04/19 12/04/19 Range/Units 05:57 15:20 15:20 WBC (5.0-10.0) 10^3/uL RBC (4.6-6.2) 10^6/uL Hgb (14.0-18.0) g/dL Hct (40.0-54.0) % MCV (80-100) fL MCH (27.0-34.0) pg MCHC (33.0-35.0) g/dL Plt Count (150-450) 10^3/uL Sodium (136-145) mmol/L Potassium (3.5-5.1) mmol/L Chloride (98-107) mmol/L Carbon Dioxide (21-32) mmol/L Anion Gap (7-13) mEq/L BUN (7-18) mg/dL Creatinine (0.70-1.30) mg/dL Est Cr Clr Drug Dosing mL/min Estimated GFR (MDRD) Glucose (74-99) mg/dL Calcium (8.5-10.1) mg/dL Phosphorus 3.5 (2.6-4.7) mg/dL Creatine Kinase 3056 H (39-308) U/L Hepatitis A IgM Ab Negative (Negative) Hep Bs Antigen Negative (Negative) Hep B Core IgM Ab Negative (Negative) Hepatitis C Antibody 0.1 (0.0-0.9) s/co ratio 12/05/19 12/05/19 Range/Units 05:49 05:49 WBC 4.5 L (5.0-10.0) 10^3/uL RBC 4.00 L (4.6-6.2) 10^6/uL Hgb 12.2 L (14.0-18.0) g/dL Hct 36.7 L (40.0-54.0) % MCV 91.8 (80-100) fL MCH 30.5 (27.0-34.0) pg MCHC 33.2 (33.0-35.0) g/dL Plt Count 257 (150-450) 10^3/uL Sodium 144 (136-145) mmol/L Potassium 4.2 (3.5-5.1) mmol/L Chloride 107 (98-107) mmol/L Carbon Dioxide 31 (21-32) mmol/L Anion Gap 10.2 (7-13) mEq/L BUN 11 (7-18) mg/dL Creatinine 0.87 (0.70-1.30) mg/dL Est Cr Clr Drug Dosing 117.38 mL/min Estimated GFR (MDRD) > 60 Glucose 101 H (74-99) mg/dL Calcium 7.3 L (8.5-10.1) mg/dL Phosphorus 2.9 (2.6-4.7) mg/dL Creatine Kinase 1857 H (39-308) U/L Hepatitis A IgM Ab (Negative) Hep Bs Antigen (Negative) Hep B Core IgM Ab (Negative) Hepatitis C Antibody (0.0-0.9) s/co ratio Med Orders - Current: Current Medications Acetaminophen (Tylenol) 650 mg PO Q4H PRN PRN Reason: Pain (Mild 1-3)/fever Last Admin: 12/02/19 19:58 Dose: 650 mg Cephalexin (Keflex) 500 mg PO Q6HR [place] Last Admin: 12/05/19 05:41 Dose: 500 mg Docusate Sodium (Colace) 100 mg PO BID PRN PRN Reason: Constipation Enoxaparin Sodium (Lovenox) 40 mg SUBCUT DAILY [place] Last Admin: 12/05/19 08:37 Dose: 40 mg Furosemide (Lasix) 40 mg IVPUSH BIDDIURETIC [place] Last Admin: 12/05/19 08:37 Dose: 40 mg Sodium Chloride (Normal Saline) 1,000 mls @ 250 mls/hr IV ASDIRECTED [facility] Last Admin: 12/05/19 06:35 Dose: 250 mls/hr Lorazepam (Ativan) 2 mg IVPUSH ONETIME PRN PRN Reason: Seizures Magnesium Hydroxide (Milk Of Magnesia) 30 ml PO Q12H PRN PRN Reason: Constipation Ondansetron HCl (Zofran Odt) 4 mg PO Q6H PRN PRN Reason: nausea, able to take PO Sodium Chloride (Saline Flush) 10 ml FLUSH ASDIRECTED PRN PRN Reason: Keep Vein Open Last Admin: 12/02/19 13:03 Dose: 10 ml Discontinued Medications Fentanyl (Sublimaze) 50 mcg IVPUSH ONETIME ONE Stop: 12/02/19 14:05 Last Admin: 12/02/19 14:16 Dose: 50 mcg Lactated Ringer's (Ringers, Lactated) 1,000 mls @ 999 mls/hr IV .BOLUS ONE Stop: 12/02/19 13:55 Last Admin: 12/02/19 13:03 Dose: 999 mls/hr Dextrose/Sodium Chloride (Dextrose 5%-1/2 Ns) 1,000 mls @ 150 mls/hr IV ASDIRECTED [facility] Last Admin: 12/02/19 14:14 Dose: 150 mls/hr Piperacillin Sod/Tazobactam (Sod 3.375 gm/ Sodium Chloride) 100 mls @ 200 mls/ hr IV Q6HR [facility] Last Infusion: 12/03/19 18:44 Dose: Infused Ketorolac Tromethamine (Toradol) 30 mg IVPUSH ONETIME ONE Stop: 12/02/19 14:05 Last Admin: 12/02/19 14:15 Dose: 30 mg Ondansetron HCl (Zofran) 4 mg IV ONETIME ONE Stop: 12/02/19 14:06 Last Admin: 12/02/19 14:15 Dose: 4 mg Simethicone (Simethicone) 160 mg PO ONETIME ONE Stop: 12/02/19 21:01 Last Admin: 12/02/19 20:44 Dose: 160 mg Simethicone (Simethicone) 80 mg PO ONETIME ONE Stop: 12/03/19 09:01 Last Admin: 12/03/19 09:05 Dose: Not Given Sodium Phosphate (Neutra-Phos) 250 mg PO ONETIME ONE Stop: 12/04/19 10:54 Last Admin: 12/04/19 12:23 Dose: 250 mg - Exam General: Reports: Alert, Oriented, Cooperative, No Acute Distress HEENT: Reports: Pupils Equal, Mucous Membr. Moist/[place] Neck: Reports: Supple Lungs: Reports: Clear to Auscultation, Normal Respiratory Effort Cardiovascular: Reports: Regular Rate, Regular Rhythm GI/Abdominal Exam: Normal Bowel Sounds, Soft, Non-Tender, No Distention Extremities: Pedal Edema, Joint Swelling (Right ankle and foot swelling. Bluish discoloration of toes improved. Able to bear weight on right foot. Sensation intact in right foot and toes. ) Skin: Reports: Warm, Dry, Intact Neurological: Reports: No New Focal Deficit Psy/Mental Status: Reports: Alert, Normal Affect, Normal Mood
--- NOTE | 2019-12-05 11:07 | US ---
EXAMINATION: Venous Doppler Lw Ext Rt SEX: Male AGE: 34 years CLINICAL HISTORY: 34-year-old male with swollen (edematous) right lower extremity and "black toes". Rule out DVT, RLE. Interpretation: 1. "Slow moving" blood flow right common femoral vein lumen consistent with or reflecting lower extremity edema and generalized vascular compression. 2. No sign of intraluminal echogenic thrombus i.e. no DVT. Normal compressibility deep veins of the right groin, thigh, knee and calf. Satisfactory augmentation venous waveforms demonstrated respectively in the posterior tibial vein of the right calf, popliteal vein behind the right knee, and proximally in the femoral veins of the right lower extremity. 3. No sign of popliteal or James's cyst. 4. Small 1.4 x 1.2 x 1.2 cm focal echogenic, relatively avascular, subcutaneous "mass" in the region of the hamstring (thigh) posteriorly that most probably represents small lipoma. 5. Solitary small 2.1 cm inguinal lymph node on the right. CONCLUSION: No DVT. Inguinal lymph node and probable small lipoma.
== END 2019-12-05 11:55 | disposition home or self-care (01) ==
LOC: DL.ED 12:40 → UNDOADMOB 14:58 → DL.MS 14:58 → DL.ED 15:02
PROVIDERS: ADMIT Student in an Organized Health Care Education/Training Program; ATTEND Internal Medicine
DX: E86.0 Dehydration (principal); M62.82 Rhabdomyolysis; F15.10 Other stimulant abuse, uncomplicated; F12.10 Cannabis abuse, uncomplicated; F19.10 Other psychoactive substance abuse, uncomplicated; T33.822A Superficial frostbite of left foot, initial encounter; T33.831A Superficial frostbite of right toe(s), initial encounter; T68.XXXA Hypothermia, initial encounter; F17.210 Nicotine dependence, cigarettes, uncomplicated; E87.2 Acidosis; R94.5 Abnormal results of liver function studies; D72.829 Elevated white blood cell count, unspecified; Z71.51 Drug abuse counseling and surveillance of drug abuser; Z88.1 Allergy status to other antibiotic agents; X31.XXXA Exposure to excessive natural cold, initial encounter
CPT/HCPCS: 36415; 76705; 80048; 80053; 80074; 80076; 80305-QW; 80307; 81001; 82550; 82962; 83605; 83735; 84100; 85025; 85027; 86140; 93971; 96361; 96365; 96366; 96374; 96375; 99284; 99285-25; A9270-GY; G0378; J1650; J1885; J1940; J2405; J2543; J3010; J7030; J7042; J7050; J7120

== ENCOUNTER 2020-12-22 21:13 | Emergency (ER) | payer OTHER | END 2020-12-22 22:05 | disposition left against medical advice (07) | LOC: DL.ED 21:13 | DX: Z53.21 Procedure and treatment not carried out due to patient leaving prior to being seen by health care provider (principal) ==

== ENCOUNTER 2020-12-23 09:08 | Emergency (ER) | payer OTHER ==
--- NOTE | 2020-12-23 09:20 | EDM.PDOC ---
ED HPI GENERAL MEDICAL PROBLEM - General Chief Complaint: Upper Extremity Injury/Pain Stated Complaint: LARGE GASH/WOUND ON LEFT ARM. Time Seen by Provider: 12/23/20 09:18 Source of Information: Reports: Patient, Old Records, RN, RN Notes Reviewed History Limitations: Reports: No Limitations - History of Present Illness INITIAL COMMENTS - FREE TEXT/NARRATIVE: Pt presents to ER with c/o a "large gash on the left arm". Pt states he came here last evening for the same complaint, but it was too busy and he did not want to wait, so he left without being seen. Pt states that yesterday afternoon he cut the left forearm on a window. Denies any other injury. The wound is now over 18 hours old. Last Tetanus vaccine was 2 or 3 years ago per pt. Onset: Sudden Onset Date: 12/22/20 Duration: Constant Location: Reports: Upper Extremity, Left Quality: Reports: Ache Severity: Moderate Improves with: Reports: None Worsens with: Reports: Movement Associated Symptoms: Reports: No Other Symptoms - Related Data Allergies Allergy/AdvReac Type Severity Reaction Status Date / Time doxycycline Allergy Unknown Cannot Verified 12/23/20 09:20 Remember Home Meds: Home Meds Ibuprofen [Ibuprofen Ib] 800 mg PO ASDIRECTED PRN 05/04/18 [History] Acetaminophen [Tylenol] 650 mg PO Q6H PRN #60 tablet 12/05/19 [Rx] Phosphorus #1 [Neutra-Phos] 250 mg PO BID #6 tab 12/05/19 [Rx] Past Medical History - Past Health History Medical/Surgical History: Denies Medical/Surgical History HEENT History: Reports: Other (See Below) Other HEENT History: dental problems Cardiovascular History: Reports: None Respiratory History: Reports: None Gastrointestinal History: Reports: None Genitourinary History: Reports: None Musculoskeletal History: Reports: None Other Musculoskeletal History: hands fx Neurological History: Reports: None Psychiatric History: Reports: Addiction Endocrine/Metabolic History: Reports: None Hematologic History: Reports: None Immunologic History: Reports: None Oncologic (Cancer) History: Reports: None Dermatologic History: Reports: None - Infectious Disease History Infectious Disease History: Reports: MRSA - Past Surgical History HEENT Surgical History: Reports: Adenoidectomy, Eye Surgery Cardiovascular Surgical History: Reports: None Respiratory Surgical History: Reports: None GI Surgical History: Reports: None Male Surgical History: Reports: None Endocrine Surgical History: Reports: None Neurological Surgical History: Reports: None Musculoskeletal Surgical History: Reports: None Oncologic Surgical History: Reports: None Social & Family History - Family History Family Medical History: No Pertinent Family History - Caffeine Use Caffeine Use: Reports: Coffee Other Caffeine Use: 2 energy drinks/ day and 2 cups coffee /day - Living Situation & Occupation Living situation: Reports: Occupation: Employed Review of Systems - Review of Systems Review Of Systems: Comprehensive ROS is negative, except as noted in HPI. ED EXAM, GENERAL - Physical Exam Exam: See Below Exam Limited By: No Limitations General Appearance: Alert, WD/WN, No Apparent Distress Throat/Mouth: Normal Voice, No Airway Compromise Head: Atraumatic, Normocephalic Neck: Normal Inspection Respiratory/Chest: No Respiratory Distress Peripheral Pulses: 3+: Radial (L), Radial (R) Extremities: Normal Range of Motion, Non-Tender, Normal Capillary Refill, Other (Left middle 1/3 of volar forearm has a 6cm transverse linear laceration to de pth of subcutaneous fat, wound edges dry and show early signs of healing). No: Joint Swelling, Increased Warmth, Mottled, Pallor, Redness Neurological: Alert, Oriented, No Motor/Sensory Deficits Psychiatric: Normal Affect, Normal Mood Skin Exam: Warm, Dry, Normal Color Course - Vital Signs Last Recorded V/S: Last Vital Signs Temp 98.4 F 12/23/20 09:22 Pulse 76 12/23/20 09:22 Resp 18 12/23/20 09:22 BP 149/61 H 12/23/20 09:22 Pulse Ox 100 12/23/20 09:22 - Orders/Labs/Meds Orders: Active Orders 24 hr Category Date Time Status Steri Strips Application [OM.PC] Routine Oth 12/23/20 09:32 Ordered - Re-Assessments/Exams Free Text/Narrative Re-Assessment/Exam: 12/23/20 09:33 Wound was cleansed by RN. Steri-strips used to provide better approximation of the wound edges. The wound is too old to suture. Sterile dressing applied and wound care instructions given to pt by the RN. Departure - Departure Time of Disposition: 09:34 Disposition: Home, Self-Care 01 Condition: Good Clinical Impression: Laceration of left forearm Qualifiers: Encounter type: initial encounter Qualified Code(s): S51.812A - Laceration without foreign body of left forearm, initial encounter - Discharge Information *PRESCRIPTION DRUG MONITORING PROGRAM REVIEWED*: Not Applicable *COPY OF PRESCRIPTION DRUG MONITORING REPORT IN PATIENT ALTAGRACIA: Not Applicable Instructions: Nonsutured Laceration Care Forms: ED Department Discharge Additional Instructions: Rx: Cephalexin 500mg Change wound dressing once or twice every day. Follow up in clinic or return to ER if any signs of wound infection develop. Sepsis Event Note (ED) - Focused Exam Vital Signs: Vital Signs Temp Pulse Resp BP Pulse Ox 12/23/20 09:22 98.4 F 76 18 149/61 H 100 - My Orders Last 24 Hours: My Active Orders 12/23/20 09:32 Steri Strips Application [OM.PC] Routine - Assessment/Plan Last 24 Hours: My Active Orders 12/23/20 09:32 Steri Strips Application [OM.PC] Routine
[2020-12-23 09:23] VITALS: BP 149/61; PULSE 76
== END 2020-12-23 09:44 | disposition home or self-care (01) ==
LOC: DL.ED 09:08
DX: S51.812A Laceration without foreign body of left forearm, initial encounter (principal); Z88.1 Allergy status to other antibiotic agents; W20.8XXA Other cause of strike by thrown, projected or falling object, initial encounter
CPT/HCPCS: 99282

== ENCOUNTER 2020-12-30 11:16 | Emergency (ER) | payer OTHER ==
[2020-12-30 11:47] VITALS: BP 139/83; PULSE 91
--- NOTE | 2020-12-30 11:51 | EDM.PDOC ---
ED HPI GENERAL MEDICAL PROBLEM - General Chief Complaint: Wound Recheck Stated Complaint: CUT ON LEFT ARM Time Seen by Provider: 12/30/20 11:51 Source of Information: Reports: Patient, Old Records, RN, RN Notes Reviewed History Limitations: Reports: No Limitations - History of Present Illness INITIAL COMMENTS - FREE TEXT/NARRATIVE: Pt presents to ER with request for wound recheck. On 12/22/20 pt cut his left forearm. He came to the ER on 12/22/20 but did not wait to be seen, and left. On 12/23/20 he returned to the ER for evaluation of the cut, but by that time it was too old for suture repair. Pt had steri-strips placed on 12/23/20 to reduce the gape in the laceration, but he removed the steri-strips the next day. Now he returns to the ER to find out if there is any infection and to see how long it will take the wound to heal. He denies pain or purulent drainage, or redness to the area. Onset: Sudden Onset Date: 12/22/20 Duration: Constant, Improving Location: Reports: Upper Extremity, Left Quality: Reports: Other (Denies pain) Severity: Moderate Improves with: Reports: None Worsens with: Reports: None Associated Symptoms: Reports: No Other Symptoms Abdomen Pain Score (Numeric/FACES): 2 - Related Data Allergies Allergy/AdvReac Type Severity Reaction Status Date / Time doxycycline Allergy Unknown Cannot Verified 12/30/20 11:45 Remember Home Meds: Home Meds Ibuprofen [Ibuprofen Ib] 800 mg PO ASDIRECTED PRN 05/04/18 [History] Acetaminophen [Tylenol] 650 mg PO Q6H PRN #60 tablet 12/05/19 [Rx] Phosphorus #1 [Neutra-Phos] 250 mg PO BID #6 tab 12/05/19 [Rx] Past Medical History - Past Health History Medical/Surgical History: Denies Medical/Surgical History HEENT History: Reports: Other (See Below) Other HEENT History: dental problems Cardiovascular History: Reports: None Respiratory History: Reports: None Gastrointestinal History: Reports: None Genitourinary History: Reports: None Musculoskeletal History: Reports: None Other Musculoskeletal History: hands fx Neurological History: Reports: None Psychiatric History: Reports: Addiction Endocrine/Metabolic History: Reports: None Hematologic History: Reports: None Immunologic History: Reports: None Oncologic (Cancer) History: Reports: None Dermatologic History: Reports: None - Infectious Disease History Infectious Disease History: Reports: MRSA - Past Surgical History HEENT Surgical History: Reports: Adenoidectomy, Eye Surgery Cardiovascular Surgical History: Reports: None Respiratory Surgical History: Reports: None GI Surgical History: Reports: None Male Surgical History: Reports: None Endocrine Surgical History: Reports: None Neurological Surgical History: Reports: None Musculoskeletal Surgical History: Reports: None Oncologic Surgical History: Reports: None Social & Family History - Family History Family Medical History: No Pertinent Family History - Tobacco Use Tobacco Use Status *Q: Current Every Day Tobacco User Years of Tobacco use: 22 Packs/Tins Daily: 2 - Caffeine Use Caffeine Use: Reports: Coffee, Energy Drinks, Soda, Tea Other Caffeine Use: 2 energy drinks/ day and 2 cups coffee /day - Recreational Drug Use Recreational Drug Use: No - Living Situation & Occupation Living situation: Reports: Occupation: Employed ED ROS GENERAL - Review of Systems Review Of Systems: Comprehensive ROS is negative, except as noted in HPI. ED EXAM, SKIN/RASH Exam: See Below Exam Limited By: No Limitations General Appearance: Alert, WD/WN, No Apparent Distress Throat/Mouth: Normal Voice, No Airway Compromise Respiratory/Chest: No Respiratory Distress Cardiovascular: Normal Peripheral Pulses Peripheral Pulses: 3+: Radial (L), Radial (R) Extremities: Non-Tender, Other (Left arm with the laceration described on the 12/23/20 ER record now healing as expected by secondary intention without signs of infection.) Neurological: Alert, Oriented, No Motor/Sensory Deficits Psychiatric: Normal Mood Skin: Warm, Dry. No: Erythema, Increased Warmth Course - Vital Signs Last Recorded V/S: Last Vital Signs Temp 97.2 F 12/30/20 11:45 Pulse 91 12/30/20 11:45 Resp 18 12/30/20 11:45 BP 139/83 12/30/20 11:45 Pulse Ox 99 12/30/20 11:45 - Re-Assessments/Exams Free Text/Narrative Re-Assessment/Exam: 12/30/20 11:58 Pt instructed in wound care and wet to dry dressings by RN. Departure - Departure Time of Disposition: 11:58 Disposition: Home, Self-Care 01 Condition: Good Clinical Impression: Encounter for re-check of laceration wound, Laceration without foreign body of left forearm, subsequent encounter - Discharge Information *PRESCRIPTION DRUG MONITORING PROGRAM REVIEWED*: Not Applicable *COPY OF PRESCRIPTION DRUG MONITORING REPORT IN PATIENT ALTAGRACIA: Not Applicable Instructions: Nonsutured Laceration Care Forms: ED Department Discharge Additional Instructions: Wash the left arm including the wound with soap and water twice a day. Blot dry and apply a bandage. Return to ER if any signs of wound infection develop. Sepsis Event Note (ED) - Evaluation Sepsis Screening Result: No Definite Risk - Focused Exam Vital Signs: Vital Signs Temp Pulse Resp BP Pulse Ox 12/30/20 11:45 97.2 F 91 18 139/83 99
== END 2020-12-30 12:17 | disposition home or self-care (01) ==
LOC: DL.ED 11:16
DX: S51.812D Laceration without foreign body of left forearm, subsequent encounter (principal); Z72.0 Tobacco use; Z48.00 Encounter for change or removal of nonsurgical wound dressing; Z88.1 Allergy status to other antibiotic agents; W26.8XXD Contact with other sharp object(s), not elsewhere classified, subsequent encounter
CPT/HCPCS: 99282

== ENCOUNTER 2025-05-22 13:47 | Emergency (ER) | payer MEDICAID, OTHER ==
[2025-05-22 14:17] LABS: BASOPHILS PERCENT AUTO 0.3 % (0.0-1.0); EOSINOPHILS PERCENT AUTO 0.6 % (1.0-3.0); LYMPHOCYTES PERCENT AUTO 21.3 % (20.5-50.1); MONOCYTES PERCENT AUTO 11.3 % (2-8); NEUTROPHILS PERCENT AUTO 66.5 % (42.2-75.2); PLATELET COUNT,PLT 349 10^3/uL (150-450); RED BLOOD CELL COUNT 5.80 10^6/uL (4.6-6.2); WHITE BLOOD CELL COUNT,WBC 11.0 10^3/uL (5.0-10.0)
[2025-05-22 14:37] LABS: A/G RATIO 1.3; ALANINE AMINOTRANSFERASE,ALT 82.0 U/L (16-63); ASPARTATE AMNIOTRANSFERASE,AST 52.0 U/L (15-37); BILIRUBIN TOTAL 1.9 mg/dL (0.2-1.0); BLOOD UREA NITROGEN,BUN 44.0 mg/dL (7-18); CARBON DIOXIDE,CO2 27.0 mmol/L (21-32); CHLORIDE,CL 94.0 mmol/L (98-107); CREATININE 1.66 mg/dL (0.70-1.30); EST CRCL DRUG DOSING (CG) 46.65 mL/min; GLUCOSE RANDOM 104.0 mg/dL (70-99); POTASSIUM,K 3.7 mmol/L (3.5-5.1); PROTEIN TOTAL,TP 8.1 g/dL (6.4-8.2); SODIUM,NA 137.0 mmol/L (136-145)
[2025-05-22 14:40] LABS: ESTIMATED GFR 52.0 mL/min (>=60)
[2025-05-22] MEDS: Iopamidol 612 MG/ML 100 ML Bottle IVPUSH ONE (14:46)
[2025-05-22 14:55] VITALS: BP 110/57; PULSE 101
== END 2025-05-22 15:43 | disposition home or self-care (01) ==
LOC: DL.ED 13:47
DX: R11.2 Nausea with vomiting, unspecified (principal); Z88.8 Allergy status to other drugs, medicaments and biological substances; Z79.899 Other long term (current) drug therapy
CPT/HCPCS: 36415; 74177; 80053; 83690; 85025; 96361; 96374; 99282; 99284; J2765; J7030; Q9967